=== PATIENT | female | born 1970 | race Caucasian/White ===

== ENCOUNTER 2016-07-20 09:11 | Inpatient (IN) | payer MEDICAID, OTHER ==
[2016-07-20] VITALS (13 sets, daily range): BP systolic 114–149; BP diastolic 65–86; PULSE 99–165; RESP 16–23; TEMP 97.7–100; O2SAT 96–100
[~2016-07-20] VITALS: Ht 165.1 cm; Wt 67.1 kg
[~2016-07-20 09:11] MED LIST: DARV PO; DOXY100T PO; SULF-154 PO; SUMA100T2 PO; TOPA15CA PO; TRAM50 PO
[2016-07-20] MEDS ORDERED: ADENOSINE IV SOLN 3 MG/ML 2 ML VIAL ONE (09:24)
[2016-07-20] MEDS ORDERED: SODIUM CHLOR 0.9% 1000 ML INJ 1,000 ML IV SCH (09:34)
[2016-07-20] MEDS ORDERED: PANTOPRAZOLE INJ 80 MG in SODIUM CHLORIDE 0.9% INJ 35 ML IV ONE (09:45)
[2016-07-20] MEDS ORDERED: SODIUM CHLORIDE 0.9% FLUSH 10 ML FLUSH IVF PRN (09:45)
[2016-07-20 10:01] LABS: AUTOMATED NEUTROPHIL # 8.2 TH/MM3 (1.8-7.7); BASOPHIL # 0.1 TH/MM3 (0-0.2); BASOPHIL % 0.5 % (0.0-2.0); EOSINOPHIL # 0.1 TH/MM3 (0-0.4); EOSINOPHIL % 0.4 % (0.0-4.0); LYMPH % 21.9 % (9.0-44.0); LYMPHOCYTE # 2.6 TH/MM3 (1.0-4.8); MEAN CELL VOLUME 76.2 FL (80.0-100.0); MEAN CORPUSCULAR HGB CONC 31.5 % (32.0-36.0); MONO % 7.2 % (0.0-8.0); PLATELET COUNT 321 TH/MM3 (150-450); RED BLOOD COUNT 2.24 MIL/MM3 (4.00-5.30); WHITE BLOOD COUNT 11.7 TH/MM3 (4.0-11.0)
[2016-07-20 10:05] LABS: HEMO FLAGS AUTO DIFF
[2016-07-20 10:10] LABS: HEMATOCRIT 17.1 % (35.0-46.0)
[2016-07-20] MEDS ORDERED: SODIUM CHLOR 0.9% 250 ML INJ 250 ML IV ONE (10:15)
[2016-07-20 10:17] LABS: APTT (PATIENT) 21.8 SEC (24.3-30.1); PROTHROMBIN TIME - PATIENT 11.5 SEC (9.8-11.6)
[2016-07-20 10:20] LABS: ANION GAP 12 MEQ/L (5-15); AST (GOT) 8 U/L (15-37); BICARBONATE 18.6 MEQ/L (21.0-32.0); BLOOD UREA NITROGEN 16 MG/DL (7-18); CHLORIDE 107 MEQ/L (98-107); GLOMERULAR FILTRATION RATE 74 ML/MIN (>89); SODIUM (NA) 138 MEQ/L (136-145)
[2016-07-20 10:23] LABS: ALKALINE PHOSPHATASE 38 U/L (45-117); ALT (GPT) 12 U/L (10-53); TOTAL BILIRUBIN ADULT 0.2 MG/DL (0.2-1.0)
[2016-07-20] MEDS: PANTOPRAZOLE INJ 80 MG in SODIUM CHLORIDE 0.9% INJ 100 ML IV SCH ×2 (10:23→19:00)
[2016-07-20 10:51] LABS: OVALOCYTES 1+ (NORMAL); POLYCHROMASIA 2.1 % (0.0-1.9); SCAN/DIFF AUTO DIFF CONFIRMED
[2016-07-20] MEDS ORDERED: ADENOSINE IV SOLN 3 MG/ML 2 ML VIAL IV PUSH ONE (11:00)
[2016-07-20] MEDS ORDERED: RESP: ALBUTEROL 2.5 MG/3 ML NEB (PRN) INH (11:30)
[2016-07-20] MEDS ORDERED: MISCELLANEOUS NURSING INFORMATION XX SCH (11:30)
[2016-07-20] MEDS ORDERED: ACETAMINOPHEN 325 MG TAB PO PRN (11:30)
[2016-07-20] MEDS ORDERED: CHLORHEXIDINE GLUCONATE 2 % 1 PACK (2 CLOTHS) TOP PRN (11:30)
[2016-07-20] MEDS ORDERED: SODIUM CHLORIDE 0.9% FLUSH 10 ML FLUSH IV FLUSH PRN (11:30)
[2016-07-20] MEDS ORDERED: diphenhydrAMINE HCL 50 MG/ML VIAL IV PUSH ONE (11:45)
[2016-07-20] MEDS ORDERED: PROCHLORPERAZINE INJ 10 MG/2 ML VIAL IM ONE (11:45)
--- NOTE | 2016-07-20 11:50 | HHI.HP ---
[facility] Service Critical Care Medicine Primary Care Physician No Primary Care Physician Admission Diagnosis gi bleed Diagnosis: (1) Microcytic hypochromic anemia Diagnosis: Principal (2) Syncope and collapse Diagnosis: Principal (3) Leukocytosis Diagnosis: Principal (4) Hypokalemia Diagnosis: Principal (5) Migraine headache Diagnosis: Principal (6) Sinus tachycardia Diagnosis: Principal Chief Complaint: Syncope Travel History International Travel<30 Days: No Contact w/Intl Traveler <30 Da: No Traveled to Known Affected Are: No History of Present Illness 46-year-old female. Admission 07/20/2069. Past medical his migraine headache - she takes 6-8 Excedrin migraines daily presented to [facility] with a 4 history of syncope at home. She noted that she her stools have been dark in nature. No murray blood noted. Prior history of "ulcer" 20 years ago diagnosed by barium examination. She is noted be tachycardic with rate 170s need EP was given 6 adenosine without result. Received 2 L normal saline. Hemoglobin 5.4. Type and cross for 2 units to be transfused PRBCs. Protonix drip 80 mg IV times once followed by 8 mg an hour. Ulcerative potassium 3.0. Replace. Also complaining of migraine headache without aura. She states that codeine and Lortab make her itch. Compazine and Benadryl ordered 1. Review of Systems Constitutional: DENIES: Fatigue, Fever, Weight gain Endocrine: DENIES: Abnorml menstrual pattern Eyes: DENIES: Blurred vision, Double Vision Ears, nose, mouth, throat: DENIES: Tinnitus, Ear Pain Respiratory: DENIES: Apneas, Shortness of breath Cardiovascular: DENIES: Chest pain Gastrointestinal: DENIES: Abdominal pain Genitourinary: DENIES: Abnormal vaginal bleeding, Nocturia Musculoskeletal: DENIES: Joint pain Integumentary: DENIES: Pruritus, Rash Hematologic/lymphatic: DENIES: Bruising Immunologic/allergic: DENIES: Eczema, Urticaria Neurologic: COMPLAINS OF: Headache, DENIES: Localized weakness, Paresthesias, Seizures Psychiatric: DENIES: Anxiety, Confusion, Depression Past Family Social History Allergies: Coded Allergies: Codeine (Verified Allergy, Mild, ITCHING, 09/05/07) Keflex (Verified Allergy, Mild, 09/05/07) Lortab (Verified Allergy, Mild, 09/05/07) Past Medical History Migraine headache Past Surgical History Appendectomy Tubal ligation Breast augmentation Reported Medications Topamax Imitrex Ultram Active Ordered Medications Reviewed in EMR Family History Mother and father noncontributory/no underlying medical problems according to patient. Both are alive Social History Denies tobacco, alcohol or IV drug use Physical Exam Vital Signs Vital Signs Date Time Temp Pulse Resp B/P Pulse Ox O2 Delivery O2 Flow Rate FiO2 07/20/16 11:15 115 18 120/65 99 Nasal Cannula 2 07/20/16 10:15 112 20 122/67 100 Nasal Cannula 2 07/20/16 09:37 100 Nasal Cannula 2 07/20/16 09:25 165 19 98 07/20/16 09:20 170 07/20/16 09:16 97.7 165 22 149/86 96 Physical Exam GENERAL: 46-year-old female, resting in bed in no acute distress SKIN: Warm and dry. Pale. HEAD: Atraumatic. Normocephalic. EYES: Pupils equal and round. Around 2 mm bilaterally and reactive No scleral icterus. No injection or drainage. ENT: No nasal bleeding or discharge. Mucous membranes pink and moderately moist NECK: Trachea midline. No JVD. CARDIOVASCULAR: Tachycardia, RR. S1, S2. No S4. Without murmur RESPIRATORY: Clear to auscultation. Breath sounds equal bilaterally. GASTROINTESTINAL: Abdomen soft, non-tender, nondistended. Active bowel sounds MUSCULOSKELETAL: Extremities without clubbing, cyanosis, or edema. NEUROLOGICAL: Awake and alert. No obvious cranial nerve deficits. Motor grossly within normal limits. Five out of 5 muscle strength in the arms and legs. Normal speech. PSYCHIATRIC: Appropriate mood and affect; insight and judgment normal. Laboratory Laboratory Tests Test 07/20/16 07/20/16 09:40 09:41 White Blood Count 11.7 Red Blood Count 2.24 Hemoglobin 5.4 Hematocrit 17.1 Mean Corpuscular Volume 76.2 Mean Corpuscular Hemoglobin 24.0 Mean Corpuscular Hemoglobin 31.5 Concent Red Cell Distribution Width 17.0 Platelet Count 321 Mean Platelet Volume 8.1 Neutrophils (%) (Auto) 70.0 Lymphocytes (%) (Auto) 21.9 Monocytes (%) (Auto) 7.2 Eosinophils (%) (Auto) 0.4 Basophils (%) (Auto) 0.5 Neutrophils # (Auto) 8.2 Lymphocytes # (Auto) 2.6 Monocytes # (Auto) 0.8 Eosinophils # (Auto) 0.1 Basophils # (Auto) 0.1 CBC Comment AUTO DIFF Differential Comment AUTO DIFF CONFIRMED Polychromasia 2.1 Ovalocytes 1+ Sodium Level 138 Potassium Level 3.0 Chloride Level 107 Carbon Dioxide Level 18.6 Anion Gap 12 Blood Urea Nitrogen 16 Creatinine 0.84 Estimat Glomerular Filtration 74 Rate Random Glucose 138 Calcium Level 8.5 Total Bilirubin 0.2 Aspartate Amino Transf 8 (AST/SGOT) Alanine Aminotransferase 12 (ALT/SGPT) Alkaline Phosphatase 38 Total Protein 6.4 Albumin 3.4 Blood Type O POSITIVE Antibody Screen NEGATIVE Crossmatch Leukocyte-Reduced Red Blood Cells Blood Bank Comment Prothrombin Time 11.5 Prothromb Time International 1.0 Ratio Activated Partial 21.8 Thromboplast Time Result Diagram: 07/20/1640 07/20/16939 Assessment and Plan Assessment and Plan Neuro/Psych: Migraine headache Received 10 mg Compazine IV 1/25 mg Benadryl IV 1 Acetaminophen for fever CV: Sinus tachycardia Status post adenosine 6 mg IV 1 ED. Heart initially 170 resolved with IV fluid bolus 1.25 L Check TSH Currently on normal saline at 84 cc an hour Resp: Nasal cannula to maintain saturations greater than or equal to 92% Incentive spirometry while awake GI: History of upper GI ulcer? Protonix 80 mg IV 1 followed by 8 mg per hour drip Serial hemoglobin is every 6 hours Cc heme for blood transfusion Gastroenterology/Dr. Chavira has been consulted : Delarosa not indicated Endo: Sliding-scale insulin if indicated to maintain euglycemia Check TSH with sinus tachycardia Renal: Creatinine currently within normal limits Accurate I's and O's Monitor urine output Heme: Microcytic hypochromic anemia Likely from slow upper GI blood. Hemoccult is pending Hemoglobin 5.4. Transfuse 2 units. Hemoglobin every 6 hours Coags within normal limits ID: Monitor for infection MSK: PT evaluate and treat FEN: Hypokalemia Received 60 mEq KCl IV 1/6 hours through peripheral IV Check magnesium. Recheck in a.m. Access: - Utilize peripheral IV. Central line if indicated Prophylaxis -GI - Protonix drip - DVT - SCD/pharmacological prophylaxis contraindicated with likely upper GI bleed Critical Care: The total critical care time was 55 minutes. Time to perform other separately billable procedures was not included in the critical care time. Code Status Full code Discussed Condition With Dr. Hayes/ED physician. Patient. Care plan discussed and all questions answered. Problem Qualifiers (1) Leukocytosis: Qualified Code: D72.829 - Leukocytosis, unspecified type (2) Migraine headache: Qualified Code: G43.909 - Migraine without status migrainosus, not intractable , unspecified migraine type Shant Rodriguez MD Jul 20, 2016 11:50
[2016-07-20] MEDS ORDERED: ONDANSETRON HCL 4 MG/2 ML VIAL IV PUSH ONE (12:00)
--- NOTE | 2016-07-20 12:06 | PD ---
HPI Chief Complaint: Cardiac Complaint Time Seen by Provider: 09:17 Travel History International Travel<30 days: No Contact w/Intl Traveler<30days: No Traveled to known affect area: No History of Present Illness HPI This is a 46-year-old female who presents to the emergency department with lightheadedness and dizziness, constant, severe, associated with palpitations that have been going on for 4 days. The patient reports that 4 days ago she was coming home from a restaurant and had an episode where she passed out. At that time EMS came to her house and noted that she had a high pulse rate but she said she didn't want to go to the hospital and she seemed to be getting better. Subsequently every time she tries to walk to the bathroom she feels very very sick, lightheaded and feels like she is going to pass out. She does acknowledge that she's had some black tarry stools. She takes a lot of aspirin. She's had an ulcer diagnosed years and years ago. 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 PFSH Past Medical History Diminished Hearing: No Migraines: Yes Tetanus Vaccination: < 5 Years Influenza Vaccination: Yes ?: Not Tubal Ligation: Yes Past Surgical History Surgical History: No Previous Surgery Appendectomy: Yes Other Surgery: Yes (breast augumentaion) Social History Alcohol Use: No Tobacco Use: No Substance Use: No Allergies-Medications (Allergen,Severity, Reaction): Coded Allergies: Codeine (Verified Allergy, Mild, ITCHING, 09/05/07) Keflex (Verified Allergy, Mild, 09/05/07) Lortab (Verified Allergy, Mild, 09/05/07) Reported Meds & Prescriptions Reported Meds & Active Scripts Active Darvocet-N 100 (Propoxyphene Napsylate/Acetam) Tab 1 Tab PO Q4HPRN NEEDED FOR PAIN Vibramycin (Doxycycline Hyclate) 100 Mg Cap 100 Mg PO BID Septra Ds (Trimethoprim/Sulfamethoxazole) Tab 1 Tab PO BID Reported Ultram (Tramadol HCl) 50 Mg Tab 1 Tab PO DIRECTED FOR PAIN Imitrex (Sumatriptan Succinate) 100 Mg Tab 100 Mg PO DAILY Topamax (Topiramate) 15 Mg Cap 0 Mg PO UNKNOWN DOSE Review of Systems Except as stated in HPI: all other systems reviewed are Neg Physical Exam Narrative GENERAL: Ill-appearing SKIN: Pale HEAD: Atraumatic. Normocephalic. EYES: Pupils equal and round. No injection or drainage. Pale sclera. ENT: Moist mucous membranes NECK: Trachea midline. CARDIOVASCULAR: Tachycardic. RESPIRATORY: Clear to auscultation. Breath sounds equal bilaterally. GASTROINTESTINAL: Abdomen soft, non-tender, nondistended. Melena on digital rectal exam. MUSCULOSKELETAL: No obvious deformities. NEUROLOGICAL: Awake and alert. No obvious cranial nerve deficits. Moving all extremities. PSYCHIATRIC: Appropriate mood and affect; insight and judgment normal. Data Data Last Documented VS Vital Signs Date Time Temp Pulse Resp B/P Pulse Ox O2 Delivery O2 Flow Rate FiO2 07/20/16 10:15 112 20 122/67 100 Nasal Cannula 2 07/20/16 09:16 97.7 Orders Adenosine Inj (Adenocard Inj) (07/20/16 09:24) Complete Blood Count With Diff (07/20/16 09:34) Comprehensive Metabolic Panel (07/20/16 09:34) Prothrombin Time / Inr (Pt) (07/20/16 09:34) Act Partial Throm Time (Ptt) (07/20/16 09:34) Type And Screen (07/20/16 09:34) Red Blood Cells (Rbc) (07/20/16 09:34) Ecg Monitoring (07/20/16 09:34) Iv Access Insert/Monitor (07/20/16 09:34) Oximetry (07/20/16 09:34) Sodium Chlor 0.9% 1000 Ml Inj (Ns 1000 M (07/20/16 09:34) Sodium Chloride 0.9% Flush (Ns Flush) (07/20/16 09:45) Pantoprazole Inj (Protonix Inj) (07/20/16 09:45) Pantoprazole Inj (Protonix Inj) (07/20/16 09:45) Blood Product Administration .UPON TRANSFUSION (07/20/16 10:12) Sodium Chlor 0.9% 250 Ml Inj (Ns 250 Ml (07/20/16 10:15) Adenosine Inj (Adenocard Inj) (07/20/16 11:00) Admit Order (Ed Use Only) (07/20/16 10:54) Labs Laboratory Tests Test 07/20/16 07/20/16 09:40 09:41 White Blood Count 11.7 TH/MM3 Red Blood Count 2.24 MIL/MM3 Hemoglobin 5.4 GM/DL Hematocrit 17.1 % Mean Corpuscular Volume 76.2 FL Mean Corpuscular Hemoglobin 24.0 PG Mean Corpuscular Hemoglobin 31.5 % Concent Red Cell Distribution Width 17.0 % Platelet Count 321 TH/MM3 Mean Platelet Volume 8.1 FL Neutrophils (%) (Auto) 70.0 % Lymphocytes (%) (Auto) 21.9 % Monocytes (%) (Auto) 7.2 % Eosinophils (%) (Auto) 0.4 % Basophils (%) (Auto) 0.5 % Neutrophils # (Auto) 8.2 TH/MM3 Lymphocytes # (Auto) 2.6 TH/MM3 Monocytes # (Auto) 0.8 TH/MM3 Eosinophils # (Auto) 0.1 TH/MM3 Basophils # (Auto) 0.1 TH/MM3 CBC Comment AUTO DIFF Differential Comment AUTO DIFF CONFIRMED Polychromasia 2.1 % Ovalocytes 1+ Sodium Level 138 MEQ/L Potassium Level 3.0 MEQ/L Chloride Level 107 MEQ/L Carbon Dioxide Level 18.6 MEQ/L Anion Gap 12 MEQ/L Blood Urea Nitrogen 16 MG/DL Creatinine 0.84 MG/DL Estimat Glomerular Filtration 74 ML/MIN Rate Random Glucose 138 MG/DL Calcium Level 8.5 MG/DL Total Bilirubin 0.2 MG/DL Aspartate Amino Transf 8 U/L (AST/SGOT) Alanine Aminotransferase 12 U/L (ALT/SGPT) Alkaline Phosphatase 38 U/L Total Protein 6.4 GM/DL Albumin 3.4 GM/DL Blood Type O POSITIVE Antibody Screen NEGATIVE Crossmatch Leukocyte-Reduced Red Blood Cells Blood Bank Comment Prothrombin Time 11.5 SEC Prothromb Time International 1.0 RATIO Ratio Activated Partial 21.8 SEC Thromboplast Time MDM Medical Decision Making Medical Screen Exam Complete: Yes Emergency Medical Condition: Yes Interpretation(s) EKG: Narrow complex tachycardia with a rate of 163 with some inferior and lateral ST depressions Hemoglobin is 5.4 Hematocrit is 17 Electrolytes are reassuring Coags are normal Differential Diagnosis SVT, upper GI bleed, lower GI bleed, menorrhagia, electrolyte abnormality Narrative Course This is a 46-year-old female who presents to the emergency department with symptoms consistent with a GI bleed. On arrival she was very tachycardic with a heart rate in the 160s to 170s. Her blood pressure was normal. She was given 6 mg of adenosine and a liter of IV fluid. The adenosine did not change her rate but the fluid seemed to slow her rate down and make it more evident that she was in a sinus tachycardia. Further adenosine was deferred and the patient was given IV hydration. She was found to have a hemoglobin of 5.4. She was Hemoccult positive. She was transfused 2 units of packed red blood cells. She was started on a pantoprazole infusion. I spoke to Dr. Marlow and who is aware of the patient and the patient will be admitted to the intensive care unit for close monitoring. Critical Care Narrative Aggregate critical care time was 50 minutes. Time to perform other separately billable procedures was not included in the critical care time. My time did not include minutes spent treating any other patients simultaneously or on activities that did not directly contribute to the patient's treatment. The services I provided to this patient were to treat and/or prevent clinically significant deterioration that could result in: disability, I provided critical care services requiring my management, as noted below: Chart data review, documentation time, medication orders and management, vital sign assessments/reviewing monitor data, ordering and reviewing lab tests, ordering and interpreting/reviewing x-rays and diagnostic studies, care of the patient and discussion of the patient with the admitting physicians. Physician Communication Physician Communication Discussed with Dr. Marlow and Dr. Rodriguez Diagnosis Primary Impression: GI bleed Qualified Code: K92.2 - Gastrointestinal hemorrhage, unspecified gastrointestinal hemorrhage type Roslyn aHyes MD Jul 20, 2016 12:06
[2016-07-20] MEDS: SUMAtriptan INJ 6 MG/0.5 ML VIAL SQ PRN (12:19)
[2016-07-20] MEDS: SODIUM CHLOR 0.9% 1000 ML INJ 1,000 ML IV SCH (12:25)
[2016-07-20] MEDS: POTASSIUM CHLOR 10 MEQ PREMIX 100 ML IV SCH ×3 (12:51→17:20)
--- NOTE | 2016-07-20 13:13 | PD.CONS ---
HPI History of Present Illness This is a 46 year old female with a history of migraine headaches for many years. At one point she was on Imitrex but states that she's been off of this and has not seen a physician in probably 10-15 years. She reports that she gets frequent headaches and takes large amount of NSAIDs. She reports that she takes at least 4 Excedrin daily and at least 6 Excedrin pills every other day along with BC Powder. She reports that Monday morning, she had a black tarry stool. She went to [place] that night and when she was sleeping she had a syncopal episode. 911 was called and evaluated her in the parking lot, however she refused to be brought to the emergency room for evaluation. She reports that yesterday she had a severe headache and took a BC powder with 8 Excedrin. Last night, she started having some epigastric pain described as pressure. She vomited a small amount of black emesis. This am, she has had several episodes of black tarry stool. She felt extremely weak and as though her heart was racing and therefore came to the ER for further evaluation. She was found to have severe anemia with an H&H of 5.4/17.1. She is tachycardic with a HR in the 130's, although her blood pressure has been stable. She reports that she was told that she had a bleeding ulcer, based off of an imaging study about 20 years ago. She has never had an EGD/Colonoscopy. She is currently waiting for an ICU bed in the ER. She is receiving IVF and blood has been ordered. ( Parris yWatt) PFSH Past Medical History Questionable hx of PUD Migraine headaches Past Surgical History Tubal ligation Oral surgery Appendectomy Breast augmentation (Parris Wyatt) Coded Allergies: Codeine (Verified Allergy, Mild, ITCHING, 07/20/16) Keflex (Verified Allergy, Mild, 07/20/16) Lortab (Verified Allergy, Mild, 07/20/16) Medications Allergies Coded Allergies Type Severity Reaction Last Updated Verified Codeine Allergy Mild ITCHING 09/05/07 Yes Keflex Allergy Mild 09/05/07 Yes Lortab Allergy Mild 09/05/07 Yes Active Scripts Medications Dose Route/Sig Days Date Category Dose Instructions Darvocet-N 100 (Propoxyphene Napsylate/Acetam) Tab 1 Tab PO Q4HPRN 09/05/07 Rx NEEDED FOR PAIN Vibramycin (Doxycycline Hyclate) 100 Mg Cap 100 Mg PO BID 09/05/07 Rx Septra Ds (Trimethoprim/Sulfamethoxazole) Tab 1 Tab PO BID 09/05/07 Rx Ultram (Tramadol HCl) 50 Mg Tab 1 Tab PO DIRECTED 09/05/07 Reported FOR PAIN Imitrex (Sumatriptan Succinate) 100 Mg Tab 100 Mg PO DAILY 09/05/07 Reported Topamax (Topiramate) 15 Mg Cap 0 Mg PO 09/05/07 Reported UNKNOWN DOSE Family History Denies any family hx of esophageal, gastric, colorectal cancer. Social History No tobacco, ETOH, Illicit drug use. (Parris Wyatt) Review of Systems Constitutional: COMPLAINS OF: Diaphoretic episodes, Fatigue, DENIES: Weight loss, Change in appetite Respiratory: DENIES: Cough Cardiovascular: COMPLAINS OF: Syncope Gastrointestinal: COMPLAINS OF: Abdominal pain, Black stools, Nausea, Vomiting , Hematemesis, DENIES: Bloody stools, Constipation, Diarrhea Musculoskeletal: DENIES: Back pain Integumentary: DENIES: Abnormal pigmentation Hematologic/lymphatic: DENIES: Bruising Neurologic: COMPLAINS OF: Headache Psychiatric: DENIES: Confusion (Parris Wyatt) GI Exam Vitals I&O Vital Signs Date Time Temp Pulse Resp B/P Pulse Ox O2 Delivery O2 Flow Rate FiO2 07/20/16 11:53 100 Nasal Cannula 2.00 07/20/16 11:15 115 18 120/65 99 Nasal Cannula 2 07/20/16 10:15 112 20 122/67 100 Nasal Cannula 2 07/20/16 09:37 100 Nasal Cannula 2 07/20/16 09:25 165 19 98 07/20/16 09:20 170 07/20/16 09:16 97.7 165 22 149/86 96 Laboratory Test 07/20/16 07/20/16 07/20/16 07/20/16 09:40 09:41 11:35 12:06 White Blood Count 11.7 TH/MM3 Red Blood Count 2.24 MIL/MM3 Hemoglobin 5.4 GM/DL Hematocrit 17.1 % Mean Corpuscular Volume 76.2 FL Mean Corpuscular Hemoglobin 24.0 PG Mean Corpuscular Hemoglobin 31.5 % Concent Red Cell Distribution Width 17.0 % Platelet Count 321 TH/MM3 Mean Platelet Volume 8.1 FL Neutrophils (%) (Auto) 70.0 % Lymphocytes (%) (Auto) 21.9 % Monocytes (%) (Auto) 7.2 % Eosinophils (%) (Auto) 0.4 % Basophils (%) (Auto) 0.5 % Neutrophils # (Auto) 8.2 TH/MM3 Lymphocytes # (Auto) 2.6 TH/MM3 Monocytes # (Auto) 0.8 TH/MM3 Eosinophils # (Auto) 0.1 TH/MM3 Basophils # (Auto) 0.1 TH/MM3 CBC Comment AUTO DIFF Differential Comment AUTO DIFF CONFIRMED Polychromasia 2.1 % Ovalocytes 1+ Sodium Level 138 MEQ/L Potassium Level 3.0 MEQ/L Chloride Level 107 MEQ/L Carbon Dioxide Level 18.6 MEQ/L Anion Gap 12 MEQ/L Blood Urea Nitrogen 16 MG/DL Creatinine 0.84 MG/DL Estimat Glomerular Filtration 74 ML/MIN Rate Random Glucose 138 MG/DL Calcium Level 8.5 MG/DL Total Bilirubin 0.2 MG/DL Aspartate Amino Transf 8 U/L (AST/SGOT) Alanine Aminotransferase 12 U/L (ALT/SGPT) Alkaline Phosphatase 38 U/L Total Protein 6.4 GM/DL Albumin 3.4 GM/DL Blood Type O POSITIVE O POSITIVE Antibody Screen NEGATIVE Crossmatch Leukocyte-Reduced Red Blood Cells Blood Bank Comment Prothrombin Time 11.5 SEC Prothromb Time International 1.0 RATIO Ratio Activated Partial 21.8 SEC Thromboplast Time Lactic Acid Level 1.1 mmol/L Physical Examination HEENT: Normocephalic; atraumatic; no jaundice. CHEST: CTA CARDIAC: RRR ABDOMEN: Soft, nondistended, epigastric tenderness; no hepatosplenomegaly; bowel sounds are present in all four quadrants. EXTREMITIES: No clubbing, cyanosis, or edema. 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 (Parris Wyatt) Assessment and Plan Plan ASSESSMENT: - Upper GIB with black emesis and melena. Pt with hx of migraines and takes large amounts of NSAIDs- at least 4 excedrin daily along with BC powder and Motrin, usually at least 6 excedrin every other day. Had 8 excedrin with BC powder yesterday. Had syncopal episode on Monday, 911 came and evaluated her, but she refused to go to the ER. She has been having epigastric discomfort, hematemesis, melena. H/H 5.4/17.1. She is tachycardic in 130's, B/P stable. Blood has been ordered, but not ready yet. Protonix Gtt. D/W patient EGD today. She does report that she was told that she had bleeding ulcer based on imaging, ? upper gi series 20 years ago but has not been. - Severe anemia. H/H 5.4/17.1. Blood ordered/pending. - Recent syncopal episode, likely related to above. She reports that she had syncopal episode Monday night, was evaluated by 911, but refused to go to the hospital. - Hypokalemia. K+ 3.0, replacement per primary - Migraines, with significant NSAID use. PLAN: - Plan for EGD today once blood given - Obtain consents - NPO - Protonix Gtt - Agree with transfusions - IVF - Monitor HH - Transfuse as needed - Avoid NSAIDs - Supportive care - D/W patient the need for outpatient FU with regards to her migraines to get better control- as she cannot be taking NSAIDs - Further recommendations to follow based on results of above - Pt seen and examined by Dr. Marlow and myself and this note is written on his behalf (Parris Wyatt) Physician Comments Patient seen and examined Agree with above Continue with current supportive care Monitor labs EGD today (Roney Marlow MD) Parris Wyatt Jul 20, 2016 13:13 Roney Marlow MD Jul 20, 2016 21:38
[2016-07-20 13:28] LABS: MAGNESIUM 1.9 MG/DL (1.5-2.5)
[2016-07-20] MEDS ORDERED: ACETAMINOPHEN 1000 MG/100 ML VIAL IV ONE (13:30)
[2016-07-20] MEDS ORDERED: KETAMINE HCL 500 MG/5 ML VIAL ONE (15:33)
[2016-07-20] MEDS ORDERED: DO NOT ADM ANY ANTICOAGULANT DRUGS PRN (16:03)
[2016-07-20] MEDS ORDERED: PROPOFOL 200 MG/20 ML AMP IV ONE (16:28)
[2016-07-20] MEDS ORDERED: POTASSIUM CHLOR 20 MEQ PREMIX 100 ML IV PRN ×2 (18:45)
[2016-07-20] MEDS ORDERED: SODIUM PHOSPHATE INJ 30 MMOL in SODIUM CHLOR 0.9% 250 ML INJ 240 ML IV PRN (18:45)
[2016-07-20] MEDS ORDERED: MAGNESIUM SULFATE INJ 4 GM in SODIUM CHLORIDE 0.9% INJ 92 ML IV PRN (18:45)
[2016-07-20] MEDS ORDERED: MAGNESIUM OXIDE 400 MG TAB PO PRN (18:45)
[2016-07-20] MEDS ORDERED: POTASSIUM PHOSPHATE MONOBASIC 500 MG TAB PO PRN (18:45)
[2016-07-20] MEDS ORDERED: POTASSIUM PHOSPHATE MONOBASIC 500 MG TAB PO/TUBE PRN (18:45)
[2016-07-20] MEDS ORDERED: MAGNESIUM SULFATE INJ 2 GM in SODIUM CHLORIDE 0.9% INJ 96 ML IV PRN (18:45)
[2016-07-20] MEDS ORDERED: POTASSIUM CHLORIDE 25 MEQ EFFERVESCENT TAB PO PRN (18:45)
[2016-07-20] MEDS ORDERED: POTASSIUM CHLOR 40 MEQ PREMIX 100 ML IV PRN ×2 (18:45)
--- NOTE | 2016-07-20 20:01 | EKG ---
Date Performed: 07/20/2016 Time Performed: 09:21:40 PTAGE: 46 years EKG: SUPRAVENTRICULAR TACHYCARDIA NONSPECIFIC ST & T-WAVE ABNORMALITY ABNORMAL RHYTHM ECG NO PREVIOUS TRACING DOCTOR: Rere Maldonado Interpretating Date/Time 07/25/2016 08:50:57
--- NOTE | 2016-07-20 21:40 | PD.PROCEDR ---
GI Procedure REFERRING PHYSICIAN Dr. Rodriguez PROCEDURE PERFORMED EGD INDICATION FOR PROCEDURE GI bleed profound anemia PROCEDURE: The procedure, risks and benefits were discussed with Ms. García and informed consent was obtained. Anesthesia sedated her with Diprivan. She was placed in the left lateral decubitus position. EGD: The Pentax videoscope was introduced through the oropharynx and advanced to the second portion of the duodenum under direct visualization. Retroflexion was performed in the stomach. FINDINGS: The esophagus this was normal The stomach this was normal The duodenum this was normal ESTIMATED BLOOD LOSS: None SPECIMENS REMOVED: None COMPLICATIONS: None IMPRESSION: Normal EGD unclear source for bleeding PLAN: Supportive care Colonoscopy tomorrow If colonoscopy is negative we will need to consider a capsule endoscopy on an outpatient basis Roney Marlow MD Jul 20, 2016 21:40
[2016-07-20] MEDS ORDERED: MAGNESIUM CITRATE SOLN 300 ML BTL PO ONE (21:45)
[2016-07-20] MEDS: SODIUM CHLORIDE 0.9% FLUSH 10 ML FLUSH IV FLUSH SCH (22:43)
[2016-07-21] VITALS (13 sets, daily range): BP systolic 103–130; BP diastolic 59–85; PULSE 86–108; RESP 16–24; TEMP 97.5–99.8; O2SAT 94–100
[2016-07-21 00:28] LABS: HEMATOCRIT 27.4 % (35.0-46.0); REVIEW FLAG FINAL
[2016-07-21] MEDS: SODIUM CHLOR 0.9% 1000 ML INJ 1,000 ML IV SCH ×2 (03:30→11:07)
[2016-07-21] MEDS: CHLORHEXIDINE GLUCONATE 2 % 1 PACK (2 CLOTHS) TOP SCH (03:31)
[2016-07-21 04:48] LABS: ALT (GPT) 10 U/L (10-53); ANION GAP 9 MEQ/L (5-15); AST (GOT) 11 U/L (15-37); BICARBONATE 22.5 MEQ/L (21.0-32.0); BLOOD UREA NITROGEN 6 MG/DL (7-18); CHLORIDE 116 MEQ/L (98-107); GLOMERULAR FILTRATION RATE 155 ML/MIN (>89); MAGNESIUM 2.6 MG/DL (1.5-2.5); POTASSIUM 3.6 MEQ/L (3.5-5.1); SODIUM (NA) 147 MEQ/L (136-145)
[2016-07-21 04:54] LABS: ALKALINE PHOSPHATASE 30 U/L (45-117); APTT (PATIENT) 23.5 SEC (24.3-30.1); INTERNATIONAL NORMALIZED RATIO 1.1 RATIO; PROTHROMBIN TIME - PATIENT 11.9 SEC (9.8-11.6); TOTAL BILIRUBIN ADULT 0.3 MG/DL (0.2-1.0)
[2016-07-21] MEDS: PANTOPRAZOLE INJ 80 MG in SODIUM CHLORIDE 0.9% INJ 100 ML IV SCH (05:32)
[2016-07-21] MEDS ORDERED: MAGNESIUM CITRATE SOLN 300 ML BTL PO ONE (06:00)
[2016-07-21 07:19] LABS: BASOPHIL % 0.5 % (0.0-2.0); EOSINOPHIL % 0.2 % (0.0-4.0); HEMATOCRIT 24.4 % (35.0-46.0); HEMO FLAGS DIFF FINAL; LYMPH % 21.1 % (9.0-44.0); LYMPHOCYTE # 1.5 TH/MM3 (1.0-4.8); MEAN CELL VOLUME 79.2 FL (80.0-100.0); MEAN CORPUSCULAR HEMOGLOBIN 27.2 PG (27.0-34.0); MEAN CORPUSCULAR HGB CONC 34.3 % (32.0-36.0); MONO % 8.7 % (0.0-8.0); NEUT % 69.5 % (16.0-70.0); PLATELET COUNT 189 TH/MM3 (150-450); RED BLOOD COUNT 3.08 MIL/MM3 (4.00-5.30); RED CELL DISTRIBUTION WIDTH 17.3 % (11.6-17.2); WHITE BLOOD COUNT 7.1 TH/MM3 (4.0-11.0)
[2016-07-21] MEDS: SUMAtriptan INJ 6 MG/0.5 ML VIAL SQ PRN ×2 (07:23→11:51)
[2016-07-21] MEDS: SODIUM CHLORIDE 0.9% FLUSH 10 ML FLUSH IV FLUSH SCH ×2 (09:00→21:33)
--- NOTE | 2016-07-21 11:52 | HHI.CCPN ---
Subjective Remarks/Hospital Course 46-year-old female. Admission 07/20/2069. Past medical his migraine headache - she takes 6-8 Excedrin migraines daily presented to [place] ED with a 4 history of syncope at home. She noted that she her stools have been dark in nature. No murray blood noted. Prior history of "ulcer" 20 years ago diagnosed by barium examination. She is noted be tachycardic with rate 170s need EP was given 6 adenosine without result. Received 2 L normal saline. Hemoglobin 5.4. Type and cross for 2 units to be transfused PRBCs. Protonix drip 80 mg IV times once followed by 8 mg an hour. Currently potassium 3.0. Replace. Also complaining of migraine headache without aura. She states that codeine and Lortab make her itch. Compazine and Benadryl ordered 1. Subjective 07/21: Afebrile. Complaining of headache currently. Received Imitrex. Received Compazine, Benadryl and Dilaudid 1 now. No vision changes. For sigmoidoscopy today. EGD negative yesterday. Hemoglobin currently 8.4 status post 3 units PRBCs. Objective Vital Signs Date Time Temp Pulse Resp B/P Pulse Ox O2 Delivery O2 Flow Rate FiO2 07/21/16 08:36 100 Nasal Cannula 2.00 07/21/16 06:00 91 07/21/16 04:00 98.6 19 111/72 Intake and Output 07/20/16 07/20/16 07/21/16 08:00 16:00 00:00 Intake Total 350 ml 2821 ml Output Total 700 ml Balance 350 ml 2121 ml Result Diagram: 07/21/16 0710 07/21/16 0400 Objective Remarks GENERAL: 46-year-old female, resting in bed in no acute distress SKIN: Warm and dry. Pale. HEAD: Atraumatic. Normocephalic. EYES: Pupils equal and round. Around 2 mm bilaterally and reactive No scleral icterus. No injection or drainage. ENT: No nasal bleeding or discharge. Mucous membranes pink and moderately moist NECK: Trachea midline. No JVD. CARDIOVASCULAR: Tachycardia, RR. S1, S2. No S4. Without murmur RESPIRATORY: Clear to auscultation. Breath sounds equal bilaterally. GASTROINTESTINAL: Abdomen soft, non-tender, nondistended. Active bowel sounds MUSCULOSKELETAL: Extremities without clubbing, cyanosis, or edema. NEUROLOGICAL: Awake and alert. No obvious cranial nerve deficits. Motor grossly within normal limits. Five out of 5 muscle strength in the arms and legs. Normal speech. PSYCHIATRIC: Appropriate mood and affect; insight and judgment normal. A/P Assessment and Plan Neuro/Psych: Migraine headache Received 10 mg Compazine IV 1/25 mg Benadryl IV 1 and Dilaudid 1 mg IV 1 now Acetaminophen for fever Imitrex 6 mg subcutaneous for migraine. Repeat when necessary If headaches persist will need imaging of brain CV: Sinus tachycardia - likely hypovolemic secondary to anemia Status post adenosine 6 mg IV 1 ED. Heart initially 170 resolved with IV fluid bolus 1.25 L Check TSH Currently on normal saline at 84 cc an hour Resp: Nasal cannula to maintain saturations greater than or equal to 92% Incentive spirometry while awake GI: History of upper GI ulcer? Protonix 80 mg IV 1 followed by 8 mg per hour drip switch to 40 mg IV twice a day with normal findings Serial hemoglobin is every 6 hours corrected appropriately. See heme for blood transfusion Gastroenterology/Dr. Chavira has been consulted EGD revealed normal esophagus, duodenum and stomach. For sigmoidoscopy today. : Delarosa not indicated Endo: Elevated TSH Sliding-scale insulin if indicated to maintain euglycemia Follow free T4/T3 in a.m. Renal: Creatinine currently within normal limits Accurate I's and O's Monitor urine output Heme: Microcytic hypochromic anemia Likely from slow upper GI blood. Hemoccult is pending Hemoglobin 5.4. Transfuse 3 units. Now 8.4 Coags within normal limits ID: Monitor for infection MSK: PT evaluate and treat FEN: Hypokalemia Testing at 3.6. Access: - Utilize peripheral IV. Central line if indicated Prophylaxis -GI - Protonix - DVT - SCD/pharmacological prophylaxis contraindicated with likely upper GI bleed Critical Care: The total care time was 35 minutes. Time to perform other separately billable procedures was not included in the critical care time. If sigmoid endoscopy negative. Likely need capsule. Okay to transfer to floor. Shant Rodriguez MD Jul 21, 2016 11:52
[2016-07-21] MEDS ORDERED: PROCHLORPERAZINE INJ 10 MG/2 ML VIAL IV PUSH ONE (13:00)
[2016-07-21] MEDS ORDERED: HYDROmorphone HCL PF 1 MG/ML VIAL IV PUSH ONE (13:00)
[2016-07-21] MEDS ORDERED: diphenhydrAMINE HCL 50 MG/ML VIAL IV PUSH ONE (13:00)
[2016-07-21] MEDS: 1/2 NS + KCL 20 MEQ INJ 1,000 ML IV SCH ×2 (14:11→21:33)
[2016-07-21] MEDS ORDERED: DO NOT ADM ANY ANTICOAGULANT DRUGS PRN (16:43)
--- NOTE | 2016-07-21 17:03 | PD.PROCEDR ---
GI Procedure REFERRING PHYSICIAN Dr. Rodriguez PROCEDURE PERFORMED Colonoscopy INDICATION FOR PROCEDURE Anemia GI bleed PROCEDURE: The procedure, risks and benefits were discussed with Ms. García and informed consent was obtained. Anesthesia sedated her with Diprivan. She was placed in the left lateral decubitus position. Colonoscopy: The Pentax videoscope was introduced through the rectum and advanced to cecum where the ileocecal valve and appendiceal orifice were identified. Retroflexion was performed in the rectum. Colonic prep was good FINDINGS: Colonic withdrawal time greater than 6 minutes as the scope was slowly withdrawn colonic mucosa was carefully inspected this was noted to be unremarkable and within normal limits the whole way through so as retroflexion in rectal examination no evidence of blood or bleeding was seen in the colon ESTIMATED BLOOD LOSS: None SPECIMENS REMOVED: None COMPLICATIONS: None IMPRESSION: Normal colonoscopy PLAN: We'll proceed with a small bowel study If all is stable tomorrow patient may be discharged from a GI standpoint to follow up as outpatient We'll plan for outpatient capsule endoscopy Continue with current supportive care Roney Marlow MD Jul 21, 2016 17:03
--- NOTE | 2016-07-21 17:30 | PD.TRANSFR ---
Transfer Summary Admission Date Jul 20, 2016 at 10:55 Transfer Date: Jul 21, 2016 Admitting Diagnosis gi bleed Diagnoses: (1) Microcytic hypochromic anemia Diagnosis: Principal (2) Syncope and collapse Diagnosis: Principal (3) Leukocytosis Diagnosis: Principal (4) Hypokalemia Diagnosis: Principal (5) Migraine headache Diagnosis: Principal (6) Sinus tachycardia Diagnosis: Principal Significant Findings EKG colonoscopy negative Transfer Summary/Subjective Remarks/Hospital Course 46-year-old female. Admission 07/20/2069. Past medical his migraine headache - she takes 6-8 Excedrin migraines daily presented to [place] ED with a 4 history of syncope at home. She noted that she her stools have been dark in nature. No murray blood noted. Prior history of "ulcer" 20 years ago diagnosed by barium examination. She is noted be tachycardic with rate 170s need EP was given 6 adenosine without result. Received 2 L normal saline. Hemoglobin 5.4. Type and cross for 2 units to be transfused PRBCs. Protonix drip 80 mg IV times once followed by 8 mg an hour. Currently potassium 3.0. Replace. Also complaining of migraine headache without aura. She states that codeine and Lortab make her itch. Compazine and Benadryl ordered 1. Subjective 07/21: Afebrile. Complaining of headache currently. Received Imitrex. Received Compazine, Benadryl and Dilaudid 1 now. No vision changes. For sigmoidoscopy today. EGD negative yesterday. Hemoglobin currently 8.4 status post 3 units PRBCs. Objective Vital Signs Date Time Temp Pulse Resp B/P Pulse Ox O2 Delivery O2 Flow Rate FiO2 07/21/16 16:00 98.5 108 17 103/59 94 07/21/16 08:36 Nasal Cannula 2.00 Intake and Output 07/20/16 07/20/16 07/21/16 08:00 16:00 00:00 Intake Total 350 ml 2821 ml Output Total 700 ml Balance 350 ml 2121 ml Result Diagram: 07/21/16 1618 07/21/16 0400 Objective Remarks GENERAL: 46-year-old female, resting in bed in no acute distress SKIN: Warm and dry. Pale. HEAD: Atraumatic. Normocephalic. EYES: Pupils equal and round. Around 2 mm bilaterally and reactive No scleral icterus. No injection or drainage. ENT: No nasal bleeding or discharge. Mucous membranes pink and moderately moist NECK: Trachea midline. No JVD. CARDIOVASCULAR: Tachycardia, RR. S1, S2. No S4. Without murmur RESPIRATORY: Clear to auscultation. Breath sounds equal bilaterally. GASTROINTESTINAL: Abdomen soft, non-tender, nondistended. Active bowel sounds MUSCULOSKELETAL: Extremities without clubbing, cyanosis, or edema. NEUROLOGICAL: Awake and alert. No obvious cranial nerve deficits. Motor grossly within normal limits. Five out of 5 muscle strength in the arms and legs. Normal speech. PSYCHIATRIC: Appropriate mood and affect; insight and judgment normal. A/P Assessment and Plan Neuro/Psych: Migraine headache Received 10 mg Compazine IV 1/25 mg Benadryl IV 1 and Dilaudid 1 mg IV 1 now Acetaminophen for fever Imitrex 6 mg subcutaneous for migraine. Repeat when necessary If headaches persist will need imaging of brain CV: Sinus tachycardia - likely hypovolemic secondary to anemia Status post adenosine 6 mg IV 1 ED. Heart initially 170 resolved with IV fluid bolus 1.25 L Check TSH Currently on normal saline at 84 cc an hour Resp: Nasal cannula to maintain saturations greater than or equal to 92% Incentive spirometry while awake GI: History of upper GI ulcer? Protonix 80 mg IV 1 followed by 8 mg per hour drip switch to 40 mg IV twice a day with normal findings Serial hemoglobin is every 6 hours corrected appropriately. See heme for blood transfusion Gastroenterology/Dr. Chavira has been consulted EGD revealed normal esophagus, duodenum and stomach. For sigmoidoscopy today. : Delarosa not indicated Endo: Elevated TSH Sliding-scale insulin if indicated to maintain euglycemia Follow free T4/T3 in a.m. Renal: Creatinine currently within normal limits Accurate I's and O's Monitor urine output Heme: Microcytic hypochromic anemia Likely from slow upper GI blood. Hemoccult is pending Hemoglobin 5.4. Transfuse 3 units. Now 8.4 Coags within normal limits ID: Monitor for infection MSK: PT evaluate and treat FEN: Hypokalemia Testing at 3.6. Access: - Utilize peripheral IV. Central line if indicated Prophylaxis -GI - Protonix - DVT - SCD/pharmacological prophylaxis contraindicated with likely upper GI bleed Critical Care: The total care time was 35 minutes. Time to perform other separately billable procedures was not included in the critical care time. If sigmoid endoscopy negative. Likely need capsule. Okay to transfer to floor. Shant Rodriguez MD Jul 21, 2016 17:30
[2016-07-21] MEDS ORDERED: SODIUM CHLORID 0.9% 500 ML INJ 500 ML IV ONE (17:45)
[2016-07-21] MEDS ORDERED: PROPOFOL 200 MG/20 ML AMP IV ONE (17:55)
--- NOTE | 2016-07-21 17:59 | EKG ---
Date Performed: 07/20/2016 Time Performed: 12:46:48 PTAGE: 46 years EKG: SINUS TACHYCARDIA Nonspecific ST-T changes ABNORMAL RHYTHM ECG Compared to prior study of 0 07/20/2016, the rate has slowed. PREVIOUS TRACING : 07/20/2016 09.21 DOCTOR: Navdeep Doyle Interpretating Date/Time 07/21/2016 17:58:07
[2016-07-21] MEDS: HYDROmorphone HCL PF 1 MG/ML VIAL IV PUSH PRN ×2 (18:03→22:04)
[2016-07-21] MEDS: ONDANSETRON HCL 4 MG/2 ML VIAL IV PRN (18:03)
[2016-07-21] MEDS: PANTOPRAZOLE SODIUM 40 MG VIAL IV PUSH SCH (21:33)
[2016-07-22] MEDS: HYDROmorphone HCL PF 1 MG/ML VIAL IV PUSH PRN ×3 (02:21→18:11)
[2016-07-22] MEDS: CHLORHEXIDINE GLUCONATE 2 % 1 PACK (2 CLOTHS) TOP SCH (04:00)
[2016-07-22 05:17] VITALS: BP 114/59; PULSE 99; RESP 16; TEMP 98.2; O2SAT 95
[2016-07-22 07:18] LABS: AUTOMATED NEUTROPHIL # 7.2 TH/MM3 (1.8-7.7); BASOPHIL % 0.2 % (0.0-2.0); EOSINOPHIL % 0.5 % (0.0-4.0); HEMATOCRIT 24.8 % (35.0-46.0); HEMO FLAGS DIFF FINAL; LYMPH % 9.4 % (9.0-44.0); LYMPHOCYTE # 0.8 TH/MM3 (1.0-4.8); MEAN CELL VOLUME 79.6 FL (80.0-100.0); MEAN CORPUSCULAR HEMOGLOBIN 27.1 PG (27.0-34.0); MEAN CORPUSCULAR HGB CONC 34.1 % (32.0-36.0); NEUT % 82.9 % (16.0-70.0); PLATELET COUNT 211 TH/MM3 (150-450); RED BLOOD COUNT 3.12 MIL/MM3 (4.00-5.30); RED CELL DISTRIBUTION WIDTH 18.1 % (11.6-17.2); WHITE BLOOD COUNT 8.7 TH/MM3 (4.0-11.0)
[2016-07-22 08:00] VITALS: BP 128/60; PULSE 92; RESP 16; TEMP 98.2; O2SAT 95
[2016-07-22 08:06] LABS: ANION GAP 6 MEQ/L (5-15); BICARBONATE 26.2 MEQ/L (21.0-32.0); BLOOD UREA NITROGEN 4 MG/DL (7-18); CHLORIDE 107 MEQ/L (98-107); FREE T3 2.96 PG/ML (2.18-3.98); FREE T4 1.46 NG/DL (0.76-1.46); GLOMERULAR FILTRATION RATE 148 ML/MIN (>89); MAGNESIUM 2.3 MG/DL (1.5-2.5); POTASSIUM 3.3 MEQ/L (3.5-5.1); SODIUM (NA) 139 MEQ/L (136-145)
[2016-07-22 08:23] LABS: CALCIUM-PROTEIN CORRECTED 8.4 MG/DL (8.5-10.1)
[2016-07-22] MEDS: PANTOPRAZOLE SODIUM 40 MG VIAL IV PUSH SCH (08:28)
[2016-07-22] MEDS: SODIUM CHLORIDE 0.9% FLUSH 10 ML FLUSH IV FLUSH SCH ×2 (08:28→21:02)
[2016-07-22] MEDS: 1/2 NS + KCL 20 MEQ INJ 1,000 ML IV SCH ×2 (08:31→21:02)
--- NOTE | 2016-07-22 09:36 | HHI.PR ---
Subjective Remarks Patient tells me that she continues to have a migraine headache, located mostly in the occipital region with radiation down her neck, not associated with any blurriness of her vision. She admits to mild nausea but no vomiting. She states that this migraine is different from her other migraines however she does admit having migraines for many years. She used to see Dr. Alberto and now has entered this migraine research study for which she takes injections monthly but cannot recall the name. Rates her migraine as 6 out of 10 She denies any bleeding per rectum and pt hasn't had a BM since last night. some epigastric tenderness w palpation. Patient mentions to me that the right calf is more enlarged on the left but per and patient this is chronic has been going on more than a year but wanted to mention it. No pain or redness noted on the right calf. Objective Vitals Vital Signs Date Time Temp Pulse Resp B/P Pulse Ox O2 Delivery O2 Flow Rate FiO2 07/22/16 05:17 98.2 99 16 114/59 95 07/21/16 23:18 99.8 105 16 108/70 94 07/21/16 22:28 96 room air 21 07/21/16 20:00 100 07/21/16 19:50 99.2 105 16 122/64 99 07/21/16 17:28 98.1 104 20 101/57 99 Nasal Cannula 2 07/21/16 17:15 104 20 101/57 99 Nasal Cannula 2 07/21/16 17:00 104 20 102/55 99 Nasal Cannula 2 07/21/16 16:55 98.1 107 20 100/53 100 Nasal Cannula 2 07/21/16 16:00 98.5 108 17 103/59 94 07/21/16 12:00 98.5 92 16 130/80 100 I/O 07/21/16 07/21/16 07/21/16 07/22/16 07/22/16 07/22/16 07:00 15:00 23:00 07:00 15:00 23:00 Intake Total 713 ml 700 ml 130 ml 1204 ml Output Total 800 ml 500 ml Balance -87 ml 700 ml 130 ml 704 ml Intake Oral 0 ml 480 ml IV Total 713 ml 700 ml 30 ml 724 ml Other 100 ml Output Urine Total 800 ml 500 ml # Voids 5 8 # Bowel Movements 4 8 0 Result Diagram: 07/22/16 0635 07/22/16 0635 Objective Remarks GENERAL: 46-year-old female, resting in bed appears comfortable however states that her migraine headache is a 6 out of 10. Patient is able to move/rotate her neck with no difficulty CARDIOVASCULAR: Regular rate and rhythm with no murmur RESPIRATORY: Clear to auscultation. Breath sounds equal bilaterally. GASTROINTESTINAL: Abdomen soft, non-tender, nondistended. Some discomfort with deep palpation in the epigastric region. MUSCULOSKELETAL: Right calf does feel slightly more enlarged on the left but no erythema or pain noted NEUROLOGICAL: Awake and alert. No obvious cranial nerve deficits. Motor grossly within normal limits. Normal speech. PSYCHIATRIC: Appropriate mood and affect; insight and judgment normal. A/P Problem List: (1) Microcytic hypochromic anemia ICD Code: D50.9 Status: Acute (2) Syncope and collapse ICD Code: R55 Status: Acute (3) Leukocytosis ICD Code: D72.829 Status: Acute (4) Hypokalemia ICD Code: E87.6 Status: Acute (5) Migraine headache ICD Code: G43.909 Status: Acute (6) Sinus tachycardia ICD Code: R00.0 Status: Acute Assessment and Plan Migraine headache s/p 10 mg Compazine IV 1/25 mg Benadryl IV 1 and Imitrex. Currently receiving Dilaudid with not much symptom relief. We'll check an MRI of the brain. Will consult neurology for further evaluation and recommendations. She denies any fevers or chills associated with her migraine headaches. Patient tells me that she takes an injection monthly for her migraines however this is different. She does not recall the name of the medication Acetaminophen for fever Sinus tachycardia Status post adenosine 6 mg IV 1 ED. Heart initially 170 resolved with IV fluid bolus 1.25 L Much improved. TSH mildly elevated and free T4 normal. Currently on normal saline at 84 cc an hour History of upper GI ulcer? Status post Protonix 80 mg IV 1 followed by 8 mg per hour drip Hemoglobin stable at 8.5. Status post 3 units packed red blood cells. Gastroenterology/Dr. Chavira following. Status post EGD and colonoscopy which were negative.Pt will need outpatient small bowel study Microcytic hypochromic anemia Likely from slow upper GI blood. Continue to monitor hemoglobin. MSK: PT evaluate and treat Encourage out of bed to chair and ambulation on a regular basis. Patient mentions that her right calf is larger than the left and this has been going on for a yr. I will check an ultrasound as both her and patient are concerned, to rule out any chronic DVT. Hypokalemia Received 60 mEq KCl IV 1/6 hours through peripheral IV Check magnesium. Recheck in a.m. -GI - Protonix - DVT - SCD/pharmacological prophylaxis contraindicated with likely upper GI bleed Discharge Planning From a GI standpoint patient can be discharged however her migraine is still debilitating therefore we will wait for MRI results and follow-up on neurology consult for further recommendations. Repeat hemoglobin in the morning. Follow-up on right leg ultrasound Problem Qualifiers (1) Leukocytosis: Qualified Code: D72.829 - Leukocytosis, unspecified type (2) Migraine headache: Qualified Code: G43.909 - Migraine without status migrainosus, not intractable , unspecified migraine type Lucila Somers MD Jul 22, 2016 09:36 Hypokalemia Received 60 mEq KCl IV 1/6 hours through peripheral IV Check magnesium. Recheck in a.m. Access: - Utilize peripheral IV. Central line if indicated Prophylaxis -GI - Protonix drip - DVT - SCD/pharmacological prophylaxis contraindicated with likely upper GI bleed Problem Qualifiers (1) Leukocytosis: Qualified Code: D72.829 - Leukocytosis, unspecified type (2) Migraine headache: Qualified Code: G43.909 - Migraine without status migrainosus, not intractable , unspecified migraine type Lucila Somers MD Jul 22, 2016 09:36
[2016-07-22] MEDS ORDERED: POTASSIUM CHLORIDE 20 MEQ CONTROLLED RELEASE TAB PO ONE (10:00)
[2016-07-22 10:24] LABS: BETA HCG QUANT LESS THAN 1 MIU/ML (0-5)
[2016-07-22] MEDS: SUMAtriptan INJ 6 MG/0.5 ML VIAL SQ PRN ×3 (11:09→21:13)
--- NOTE | 2016-07-22 11:11 | RADRPT ---
EXAM DATE/TIME: 07/22/2016 10:50 [facility] COMPARISON: No previous studies available for comparison. INDICATIONS : Right leg swelling. MEDICAL HISTORY : GI Bleed. Right leg swelling. SURGICAL HISTORY : Appendectomy. Breast augmentation. ENCOUNTER: Initial ACUITY: >1 year PAIN SCORE: 5/10 LOCATION: Right leg. TECHNIQUE: Venous ultrasound of the leg was performed from the inguinal ligament to the proximal calf. Real-chase e, color Doppler and spectral tracing, compression and augmentation techniques were used. FINDINGS: There is normal compressibility of the deep venous system from the inguinal region to the proximal ca lf. No echogenic clot is seen in the lumen of the common femoral, femoral, popliteal, and posterior tibial veins. There is a normal response of the venous system to proximal and distal augmentation an d respiration. CONCLUSION: 1. No evidence of deep venous thrombosis. Navdeep Reyes MD on July 22, 2016 at 11:09 Board Certified Radiologist. This report was verified electronically.
[2016-07-22 12:00] VITALS: BP 131/66; PULSE 96; RESP 17; TEMP 98.4; O2SAT 96
[2016-07-22 16:00] VITALS: BP 139/69; PULSE 104; RESP 18; TEMP 98.5; O2SAT 100
[2016-07-22] MEDS ORDERED: GADODIAMIDE PF 287 MG/ML 5 ML VIAL (for RAD MRI) IV ONE (16:01)
--- NOTE | 2016-07-22 16:38 | RADRPT ---
EXAM DATE/TIME: 07/22/2016 15:40 [facility] COMPARISON: No previous studies available for comparison. INDICATIONS : Posterior cephalgia. CONTRAST: 13 cc Omniscan (gadodiamide) IV MEDICAL HISTORY : Anemia SURGICAL HISTORY : Tubal ligation. Appendectomy. Breast augmentation ENCOUNTER: Subsequent ACUITY: 1 day PAIN SCORE: 3/10 LOCATION: posterior head TECHNIQUE: Multiplanar, multisequence MRI of the brain was performed both prior to and following the administrat ion of paramagnetic contrast. FINDINGS: CEREBRUM: The ventricles are normal for age. No evidence of midline shift, mass lesion, hemorrhage or acute in farction. No extraaxial fluid collections are seen. The pituitary gland and suprasellar cistern are normal in configuration. WHITE MATTER: No significant signal abnormalities are seen in the white matter. POSTERIOR FOSSA: The cerebellum and brainstem are intact. The 4th ventricle is midline. The cerebellopontine angle is unremarkable. The cerebellar tonsils are normal in position. DIFFUSION IMAGING: No focal areas of restricted diffusion are seen. No evidence of acute infarction. EXTRACRANIAL: The visualized portions of the orbits and paranasal sinuses are unremarkable. POST-CONTRAST: No abnormal areas of parenchymal or dural enhancement. No evidence of blood-brain barrier breakdown. CONCLUSION: Unremarkable exam. Maco Hines MD on July 22, 2016 at 16:35 Board Certified Radiologist. This report was verified electronically.
[2016-07-22 17:29] VITALS: O2SAT 99
--- NOTE | 2016-07-22 19:37 | MB ---
cc: PIYUSH CATES M.D. DATE OF CONSULTATION 07/22/16 REASON FOR CONSULTATION Chronic headache. HISTORY OF PRESENT ILLNESS Ms. García is a very nice 46-year-old female who has a long history of migraine headaches. She came to the ER after having an episode of syncope times four. She had dark tarry stools. She apparently takes 6-8 Excedrin migraines daily. She complains of a severe headache which starts in the occipital region, radiates to the top of her head, becomes severe in nature as well as nausea with this and photophobia. PAST MEDICAL HISTORY 1. History of migraine headaches 2. Appendectomy 3. Tubal ligation, 4. Breast augmentation surgery. MEDICATIONS current, 1. Imitrex subcu. 2. Dilaudid as needed for pain. 3. Percocet p.r.n. pain. 4. Zofran NEUROLOGIC EXAMINATION VITAL SIGNS: Blood pressure 139/__9, pulse is 104, respirations 18, temperature 98 degrees. Higher cortical function is normal. Cranial nerves intact. Motor exam - no focal deficits. IMAGING STUDIES MRI of the brain is normal. LABORATORY DATA White count is 8700, hemoglobin 8.5, hematocrit 24%, platelet count 211,000. Sodium is 139, potassium 3.3, chloride 107, CO2 26, the BUN is four, creatinine 0.46, calcium is 8.4. 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 RECOMMENDATIONS I would like to get an MRI of the cervical spine to rule out herniated disk. We will also resume Topamax, which may be helpful. Continue the Imitrex p.r.n. Also if she does not improve, consider pain management consult for occipital nerve blocks. MD ELEANOR Wilson/ /5:47 PM /7:25 PM
[2016-07-22 20:00] VITALS: BP 133/61; PULSE 103; RESP 16; TEMP 98.6; O2SAT 92
[2016-07-22] MEDS: ONDANSETRON HCL 4 MG/2 ML VIAL IV PRN (20:59)
[2016-07-22] MEDS: TOPIRAMATE 25 MG TAB PO SCH (21:00)
[2016-07-22] MEDS: PANTOPRAZOLE SOD 40 MG DELAYED RELEASE TAB PO SCH (21:00)
[2016-07-23] VITALS: BP 102/56; PULSE 97; RESP 20; TEMP 98.5; O2SAT 98
[2016-07-23] MEDS: HYDROmorphone HCL PF 1 MG/ML VIAL IV PUSH PRN ×4 (01:29→23:32)
[2016-07-23 04:00] VITALS: BP 120/71; PULSE 98; RESP 20; TEMP 98.5; O2SAT 97
[2016-07-23] MEDS: CHLORHEXIDINE GLUCONATE 2 % 1 PACK (2 CLOTHS) TOP SCH (04:00)
[2016-07-23] MEDS: ONDANSETRON HCL 4 MG/2 ML VIAL IV PRN (07:30)
[2016-07-23 08:00] VITALS: BP 120/65; PULSE 86; RESP 16; TEMP 98.4; O2SAT 100
--- NOTE | 2016-07-23 08:19 | RADRPT ---
EXAM DATE/TIME: 07/23/2016 07:40 [facility] COMPARISON: No previous studies available for comparison. INDICATIONS : Pain at base of skull. MEDICAL HISTORY : Anemia. SURGICAL HISTORY : Appendectomy. Tubal ligation. ENCOUNTER: Initial ACUITY: 2 day PAIN SCORE: 3/10 LOCATION: Paraspinal TECHNIQUE: Multiplanar, multisequence MRI examination of the cervical spine was performed. FINDINGS: VERTEBRAE: Normal vertebral body height. Homogeneous marrow signal. ALIGNMENT: No evidence of subluxation. CORD: Normal configuration and signal. POST FOSSA: The cerebellar tonsils are normal in position. C2-C3: Small central disc protrusion abuts the cord without canal or foraminal narrowing. C3-C4: Diffuse disc bulge effaces the ventral thecal sac without significant canal or foraminal. C4-C5: Broad-based left central disc protrusion abuts the cord effacing the ventral thecal sac without signi ficant canal or foraminal narrowing. C5-C6: Diffuse disc bulge with effacement of the ventral thecal sac and mild left foraminal narrowing. C6-C7: Broad-based protrusion abuts the cord effacing the ventral thecal sac. No significant canal or forami nal narrowing. C7-T1: The thecal sac has a normal configuration. There is no evidence of disc herniation or spinal canal s tenosis. The neural foramina are patent bilaterally. CONCLUSION: 1. Multilevel degenerative disc disease without canal stenosis. Abilio James MD on July 23, 2016 at 8:13 Board Certified Radiologist. This report was verified electronically.
[2016-07-23] MEDS: SUMAtriptan INJ 6 MG/0.5 ML VIAL SQ PRN (08:30)
[2016-07-23] MEDS: PANTOPRAZOLE SOD 40 MG DELAYED RELEASE TAB PO SCH ×2 (08:57→21:02)
[2016-07-23] MEDS: SODIUM CHLORIDE 0.9% FLUSH 10 ML FLUSH IV FLUSH SCH ×2 (08:57→21:02)
[2016-07-23] MEDS: TOPIRAMATE 25 MG TAB PO SCH ×2 (08:57→21:01)
[2016-07-23 10:11] LABS: HEMATOCRIT 31.7 % (35.0-46.0); REVIEW FLAG FINAL
[2016-07-23] MEDS: 1/2 NS + KCL 20 MEQ INJ 1,000 ML IV SCH (10:19)
[2016-07-23 10:58] LABS: BICARBONATE 22.7 MEQ/L (21.0-32.0); POTASSIUM 3.4 MEQ/L (3.5-5.1)
[2016-07-23 12:00] VITALS: BP 121/67; PULSE 97; RESP 16; TEMP 98; O2SAT 99
[2016-07-23] MEDS: MAGNESIUM CITRATE SOLN 300 ML BTL PO SCH ×2 (12:00→17:34)
[2016-07-23 16:00] VITALS: BP 116/73; PULSE 84; RESP 16; TEMP 98.4; O2SAT 100
--- NOTE | 2016-07-23 16:08 | HHI.PR ---
Review/Management Diagnosis cervicogenic headaches Plan increase topamax. Diagnosis/Plan: Subjective Subjective Comments No acute events reported Headache a little better today She is tolerating topamax well Active Medications Current Medications Medications (Trade) Dose Ordered Sig/Radha Route Start Time Stop Time Status Last Admin Pantoprazole Sodium 80 mg/ Sodium Chloride 100 ml @ 10 mls/hr Q10H IV 07/20/16 09:45 Hold 07/21/16 05:32 (NS 1000 ml Inj) 1,000 ml @ 84 mls/hr [id number] IV 07/20/16 11:17 Hold 07/21/16 03:30 (NS Flush) 2 ml UNSCH PRN IV FLUSH 07/20/16 11:30 07/20/16 12:10 (NS Flush) 2 ml BID IV FLUSH 07/20/16 21:00 07/23/16 08:57 (Tylenol) 650 mg Q6H PRN PO 07/20/16 11:30 (Zofran Inj) 4 mg Q6H PRN IV 07/20/16 11:30 07/23/16 07:30 Miscellaneous Information 1 [id number] XX 07/20/16 11:30 (Chlorhexidine 2% Cloth) 3 pack Taper DAILY@04 TOP 07/21/16 04:00 07/17/17 03:59 07/21/16 03:31 (Chlorhexidine 2% Cloth) 3 pack UNSCH PRN TOP 07/20/16 11:30 Sumatriptan Succinate 6 mg 6 mg UNSCH PRN SQ 07/20/16 11:45 07/23/16 08:30 (1/2 NS + KCl 20 Meq Inj) 1,000 ml @ 84 mls/hr [id number] IV 07/21/16 12:30 07/23/16 10:19 (Percocet 5-325 Mg) 1 tab Q6H PRN PO 07/21/16 17:45 (Dilaudid Pf Inj) 1 mg Q4H PRN IV PUSH 07/21/16 17:45 07/23/16 05:43 (Protonix) 40 mg Q12HR PO 07/22/16 21:00 07/23/16 08:57 (Topamax) 50 mg Q12HR PO 07/22/16 21:00 07/23/16 08:57 (Citroma Liq) 300 ml Q6H PO 07/23/16 12:00 07/23/16 18:01 07/23/16 12:00 (Dulcolax Ec) 10 mg ONCE ONCE PO 07/23/16 18:00 07/23/16 18:01 (Dulcolax Ec) 10 mg HS PO 07/23/16 21:00 07/23/16 21:01 Allergies Allergies Coded Allergies Codeine (Verified Allergy, Mild, ITCHING, 07/20/16) Keflex (Verified Allergy, Mild, 07/20/16) Lortab (Verified Allergy, Mild, 07/20/16) Exam I&O / VS 07/22/16 07/22/16 07/23/16 15:00 23:00 07:00 Intake Total 960 ml 360 ml 1608 ml Output Total 25 ml 4 ml Balance 960 ml 335 ml 1604 ml Intake Oral 960 ml 360 ml 600 ml IV Total 1008 ml Output Urine Total 25 ml Stool Total 4 ml # Voids 5 # Bowel Movements 1 Vital Signs Date Time Temp Pulse Resp B/P Pulse Ox O2 Delivery O2 Flow Rate FiO2 07/23/16 12:00 98.0 97 16 121/67 99 07/23/16 10:30 16 07/23/16 08:00 99 Room Air 07/23/16 08:00 98.4 86 16 120/65 100 07/23/16 04:00 98.5 98 20 120/71 97 07/23/16 00:00 98.5 97 20 102/56 98 07/22/16 20:00 103 07/22/16 20:00 98.6 103 16 133/61 92 07/22/16 17:29 99 21 Exam Comments alert, speech normal CN intact Motor--no focal sx Objective Radiology Results MRI cervical spine--cervical spondylosis with no cord compression Micro and Labs Laboratory Tests Test 07/23/16 09:35 Hemoglobin 10.4 Hematocrit 31.7 Sodium Level 139 Potassium Level 3.4 Chloride Level 106 Carbon Dioxide Level 22.7 Anion Gap 10 Blood Urea Nitrogen 4 Creatinine 0.68 Estimat Glomerular Filtration 94 Rate Random Glucose 142 Calcium Level 8.9 Jorden Alberto PhD Jul 23, 2016 16:08
[2016-07-23 16:33] LABS: HEMATOCRIT 30.7 % (35.0-46.0); REVIEW FLAG FINAL
--- NOTE | 2016-07-23 16:43 | HHI.PR ---
Subjective Remarks Follow up migraine headache, nausea, and GI bleed. Patient seen and examined in room by myself and Dr. Somers. Reports headache and neck pain more controlled with current migraine regimen. At this time, headache is a 3/10 on pain scale. Does report current abdominal pain as well as murray red blood with bowel movement a few moments ago. Patient states nausea is relieved with PRN Zofran. Denies any recent fever, chills, cough or shortness of breath. Spoke Dr. Hernandez, plan is to do a STAT bleeding scan and await STAT H & H. Objective Vitals Vital Signs Date Time Temp Pulse Resp B/P Pulse Ox O2 Delivery O2 Flow Rate FiO2 07/23/16 12:00 98.0 97 16 121/67 99 07/23/16 10:30 16 07/23/16 08:00 99 Room Air 07/23/16 08:00 98.4 86 16 120/65 100 07/23/16 04:00 98.5 98 20 120/71 97 07/23/16 00:00 98.5 97 20 102/56 98 07/22/16 20:00 103 07/22/16 20:00 98.6 103 16 133/61 92 07/22/16 17:29 99 21 I/O 07/22/16 07/22/16 07/22/16 07/23/16 07/23/16 07/23/16 07:00 15:00 23:00 07:00 15:00 23:00 Intake Total 1204 ml 960 ml 360 ml 1608 ml Output Total 500 ml 25 ml 4 ml Balance 704 ml 960 ml 335 ml 1604 ml Intake Oral 480 ml 960 ml 360 ml 600 ml IV Total 724 ml 1008 ml Output Urine Total 500 ml 25 ml Stool Total 4 ml # Voids 5 # Bowel Movements 0 1 Result Diagram: 07/23/16 0935 07/23/16 0935 Imaging Last Impressions Cervical Spine MRI 07/23/16 0000 Signed Impressions: Service Date/Time: Saturday, July 23, 2016 07:40 - CONCLUSION: 1. Multilevel degenerative disc disease without canal stenosis. Abilio James MD Lower Extremity Ultrasound 07/22/16 0000 Signed Impressions: Service Date/Time: Friday, July 22, 2016 10:50 - CONCLUSION: 1. No evidence of deep venous thrombosis. Navdeep Reyes MD Brain MRI 07/22/16 0000 Signed Impressions: Service Date/Time: Friday, July 22, 2016 15:40 - CONCLUSION: Unremarkable exam. Maco Hines MD Objective Remarks GENERAL: Well-nourished, well-developed patient in NAD. Appears more comfortable today HEENT: Normocephalic. Atraumatic. Pupils equal and round. No scleral icterus. No injection or drainage. No nasal bleeding or discharge. Mucous membranes pink and moist. CARDIOVASCULAR: Regular rate and rhythm. S1, S2 noted. No murmur appreciated. RESPIRATORY: No accessory muscle use. Clear to auscultation. Breath sounds equal bilaterally. GASTROINTESTINAL: Abdomen soft, tender throughout to palpation. Nondistended. Normoactive bowel sounds x4. MUSCULOSKELETAL: No obvious deformities. Extremities without edema. NEUROLOGICAL: Awake and alert. No obvious cranial nerve deficits. Motor grossly within normal limits. 5/5 muscle strength in bilateral upper and lower extremities. Normal speech. PSYCHIATRIC: Appropriate mood and affect; insight and judgment normal. Urinary Catheter: No Vascular Central Line Catheter: No A/P Problem List: (1) Microcytic hypochromic anemia ICD Code: D50.9 Status: Acute (2) Syncope and collapse ICD Code: R55 Status: Acute (3) Leukocytosis ICD Code: D72.829 Status: Acute (4) Hypokalemia ICD Code: E87.6 Status: Acute (5) Migraine headache ICD Code: G43.909 Status: Acute (6) Sinus tachycardia ICD Code: R00.0 Status: Acute Assessment and Plan Migraine headache s/p 10 mg Compazine IV 1/25 mg Benadryl IV 1 and Imitrex PRN. MRI brain images reviewed by me, unremarkable exam. MRI cervical spine reviewed by me, multilevel degenerative disc disease without canal stenosis. Neurology following , increase Topamax 50 mg PO Q8hr. Continue Imitrex sq and change Dilaudid IV to q8hr prn breakthrough pain. Acetaminophen PRN for fever. Sinus tachycardia Status post adenosine 6 mg IV 1 ED. Heart initially 170 resolved with IV fluid bolus 1.25 L resolved TSH mildly elevated and free T4 normal. Currently on normal saline at 84 cc an hour, continue IVF. History of upper GI ulcer? Status post Protonix 80 mg IV 1 followed by 8 mg per hour drip Reviewed Hemoglobin 10.4 today 07/23. Although, patient has been having murray red blood with bowel movement today. STAT H & H ordered, pending results. Case discussed w Gastroenterology/Dr. Chavira, status post EGD and colonoscopy which were negative. STAT bleeding scan ordered for today 07/23 by GI. Status post 3 units packed red blood cells. Microcytic hypochromic anemia Likely from slow upper GI blood. Continue to monitor hemoglobin. MSK: PT evaluate and treat Encourage out of bed to chair and ambulation on a regular basis. Follow up patient mentioning right calf larger than the left and has been present for one year - Lower extremity ultrasound reviewed by me, no evidence of DVT. Hypokalemia S/p potassium replacement. Continue 1/2 NS with 20 meq K at 84 ml/hr. Potassium level 3.4 today. give One time KCL 20 meq PO x 1 now. Magnesium 2.3, on 07/22. Recheck BMP in a.m. GI Prophylaxis Protonix DVT Prophylaxis SCD/pharmacological prophylaxis contraindicated with rectum bleeding Written by Azul Saab, acting as scribe for Dr. Somers on 07/23/16 at 16:43. This note was transcribed by scribe Azul Saab. I, Dr. Lucila Somers personally performed the history, physical exam, and medical decision making; and confirmed the accuracy of the information in the transcribed note. Authenticated by Dr. Lucila Somers on 07/23/16 at 16:43 Discharge Planning GI standpoint still following with STAT bleeding scan today and continued murray red blood with bowel movements. Migraine is much improved with migraine medication regimen, Neurology following. MRI brain and MRI cervical spine results reviewed, encourage neurology recommendations. Problem Qualifiers (1) Leukocytosis: Qualified Code: D72.829 - Leukocytosis, unspecified type (2) Migraine headache: Qualified Code: G43.909 - Migraine without status migrainosus, not intractable , unspecified migraine type Azul Saab Jul 23, 2016 16:43 Lucila Somers MD Jul 23, 2016 17:41
[2016-07-23] MEDS ORDERED: POTASSIUM CHLORIDE 20 MEQ CONTROLLED RELEASE TAB PO ONE (16:45)
--- NOTE | 2016-07-23 17:57 | HHI.GIFU ---
Subjective Remarks Patient comfortable in bed reports 3 bloody bowel movements with clots today Objective Vitals I&O Vital Signs Date Time Temp Pulse Resp B/P Pulse Ox O2 Delivery O2 Flow Rate FiO2 07/23/16 16:00 98.4 84 16 116/73 100 07/23/16 12:00 98.0 97 16 121/67 99 07/23/16 10:30 16 07/23/16 08:00 99 Room Air 07/23/16 08:00 98.4 86 16 120/65 100 07/23/16 04:00 98.5 98 20 120/71 97 07/23/16 00:00 98.5 97 20 102/56 98 07/22/16 20:00 103 07/22/16 20:00 98.6 103 16 133/61 92 I/O 07/22/16 07/22/16 07/22/16 07/23/16 07/23/16 07/23/16 07:00 15:00 23:00 07:00 15:00 23:00 Intake Total 1204 ml 960 ml 360 ml 1608 ml 600 ml Output Total 500 ml 25 ml 4 ml Balance 704 ml 960 ml 335 ml 1604 ml 600 ml Intake Oral 480 ml 960 ml 360 ml 600 ml 600 ml IV Total 724 ml 1008 ml Output Urine Total 500 ml 25 ml Stool Total 4 ml # Voids 5 # Bowel Movements 0 1 5 Laboratory Laboratory Tests Test 07/23/16 07/23/16 09:35 15:56 Hemoglobin 10.4 10.0 Hematocrit 31.7 30.7 Sodium Level 139 Potassium Level 3.4 Chloride Level 106 Carbon Dioxide Level 22.7 Anion Gap 10 Blood Urea Nitrogen 4 Creatinine 0.68 Estimat Glomerular Filtration 94 Rate Random Glucose 142 Calcium Level 8.9 Imaging Last 48 hours Impressions Cervical Spine MRI 07/23/16 0000 Signed Impressions: Service Date/Time: Saturday, July 23, 2016 07:40 - CONCLUSION: 1. Multilevel degenerative disc disease without canal stenosis. Abilio James MD Lower Extremity Ultrasound 07/22/16 0000 Signed Impressions: Service Date/Time: Friday, July 22, 2016 10:50 - CONCLUSION: 1. No evidence of deep venous thrombosis. Navdeep Reyes MD Brain MRI 07/22/16 0000 Signed Impressions: Service Date/Time: Friday, July 22, 2016 15:40 - CONCLUSION: Unremarkable exam. Maco Hines MD Physical Exam HEENT: Normocephalic atraumatic throat is clear NECK: Neck is supple, CHEST: Chest is clear to auscultation and percussion. CARDIAC: Regular rate and rhythm with no murmur gallop or rubs. ABDOMEN: Soft, nondistended, nontender; no hepatosplenomegaly; bowel sounds are present in all four quadrants. EXTREMITIES: No clubbing, cyanosis, or edema. SKIN: Normal; no rash; no jaundice. [employer]: No focal deficits; alert and oriented times three. Assessment and Plan Plan ASSESSMENT: - Upper GIB with black emesis and melena. Pt with hx of migraines and takes large amounts of NSAIDs- at least 4 excedrin daily along with BC powder and Motrin, usually at least 6 excedrin every other day. Had 8 excedrin with BC powder yesterday. Had syncopal episode on Monday, 911 came and evaluated her, but she refused to go to the ER. She has been having epigastric discomfort, hematemesis, melena. H/H 5.4/17.1. She is tachycardic in 130's, B/P stable. Blood has been ordered, but not ready yet. Protonix Gtt. D/W patient EGD today. She does report that she was told that she had bleeding ulcer based on imaging, ? upper gi series 20 years ago but has not been. - Severe anemia. H/H 5.4/17.1. Blood ordered/pending. - Recent syncopal episode, likely related to above. She reports that she had syncopal episode Monday night, was evaluated by 911, but refused to go to the hospital. - Hypokalemia. K+ 3.0, replacement per primary - Migraines, with significant NSAID use. PLAN: -So far workup has been negative -We will obtain a bleeding scan -Continue with current supportive care -Probable outpatient capsule endoscopy - Agree with transfusions - IVF - Monitor HH - Transfuse as needed - Avoid NSAIDs - Supportive care Roney Marlow MD Jul 23, 2016 17:57
[2016-07-23] MEDS ORDERED: BISACODYL EC 5 MG TABEC PO ONE (18:00)
[2016-07-23 20:00] VITALS: BP 161/98; PULSE 109; PULSE 81; RESP 19; TEMP 98.2; O2SAT 100
--- NOTE | 2016-07-23 20:27 | RADRPT ---
EXAM DATE/TIME: 07/23/2016 17:55 [facility] COMPARISON: No previous studies available for comparison. INDICATIONS : Phillip red blood in stool. Abdominal pain. DOSE: 20.2 mCi Tc99m Ultratag labeled red blood cells IV IMAGIN hrs MEDICAL HISTORY : Syncope. SURGICAL HISTORY : Tubal ligation. Appendectomy. Breast augumentation. ENCOUNTER: Initial ACUITY: 1 day PAIN SCALE: 3/10 LOCATION: Bilateral Abdomen. TECHNIQUE: Following the modified in vitro labeling of autologous red cells, dynamic continuous images were acqu ired for the specified interval. FINDINGS: BIODISTRIBUTION: There is a very good labeling of red cells without significant uptake in the gastric wall. There is good delineation of the blood pool of the spleen and abdominal vessels. BLEEDING: No episodes of active GI bleeding are observed during specified interval of continuous observation. CONCLUSION: Unable to localize the site of the patient's gastrointestinal bleeding at this time. Galina Bartlett MD on July 23, 2016 at 20:25 Board Certified Radiologist. This report was verified electronically.
[2016-07-23] MEDS ORDERED: BISACODYL EC 5 MG TABEC PO SCH (21:00)
[2016-07-23] MEDS: oxyCODONE/ACETAMINOPHEN 5 MG/325 MG TAB PO PRN (21:07)
[2016-07-23] MEDS ORDERED: TEMAZEPAM 7.5 MG CAP PO ONE (23:45)
[2016-07-24] VITALS (7 sets, daily range): BP systolic 101–133; BP diastolic 55–77; PULSE 69–96; RESP 12–20; TEMP 97.2–98.4; O2SAT 98–100
[2016-07-24] MEDS: 1/2 NS + KCL 20 MEQ INJ 1,000 ML IV SCH ×2 (00:05→11:00)
[2016-07-24] MEDS: SUMAtriptan INJ 6 MG/0.5 ML VIAL SQ PRN (03:01)
[2016-07-24] MEDS: CHLORHEXIDINE GLUCONATE 2 % 1 PACK (2 CLOTHS) TOP SCH (03:47)
[2016-07-24] MEDS: TOPIRAMATE 25 MG TAB PO SCH ×3 (05:52→20:13)
[2016-07-24] MEDS: HYDROmorphone HCL PF 1 MG/ML VIAL IV PUSH PRN (08:19)
[2016-07-24] MEDS: PANTOPRAZOLE SOD 40 MG DELAYED RELEASE TAB PO SCH ×2 (08:20→20:13)
[2016-07-24] MEDS: SODIUM CHLORIDE 0.9% FLUSH 10 ML FLUSH IV FLUSH SCH ×2 (08:21→20:12)
[2016-07-24 11:20] LABS: BICARBONATE 25.8 MEQ/L (21.0-32.0); POTASSIUM 3.9 MEQ/L (3.5-5.1)
--- NOTE | 2016-07-24 14:24 | RADRPT ---
EXAM DATE/TIME: 07/24/2016 10:11 [facility] COMPARISON: No previous studies available for comparison. INDICATIONS : Abdomen Pain FLUORO TIME: 0 minutes IMAGE COUNT: 9 CONTRAST: Entero Vu 24% Barium Sulfate (24% w/v, 20% w/w) IMAGING TIME(S): 15 min, 30 min, 45 min, 1 hr, 1.5 hrs, 3 hrs MEDICAL HISTORY : None. SURGICAL HISTORY : Tubal ligation. Appendectomy. Breast augumentation. ENCOUNTER: Initial ACUITY: 1 day PAIN SCORE: 3/10 LOCATION: Bilateral Abdomen FINDINGS: Preliminary film is unremarkable. The stomach is grossly unremarkable. Examination of the small bowel demonstrates normal mucosal pattern involving the jejunum and ileum. There is no evidence of mass or obstruction. No intraluminal filling defects are identified. Small bowel transit time is 180 minutes. CONCLUSION: Mildly prolonged small bowel transit time. Otherwise unremarkable small bowel examination. Ashish Monreal MD on July 24, 2016 at 14:21 Board Certified Radiologist. This report was verified electronically.
[2016-07-24] MEDS: oxyCODONE/ACETAMINOPHEN 5 MG/325 MG TAB PO PRN ×2 (14:36→23:29)
--- NOTE | 2016-07-24 16:25 | HHI.PR ---
Subjective Remarks Pt states that she is still bleeding. She feels dizzy at times whenever she sits up. She denies any CP/SOB/N/V. Pt tells me that her period started today. In addition, pt also states that she wants to eat regular food and that she is really hungry Family at bedside. discussed w RN, apparently pt never told her she was bleeding. She did mention to RN that she had started her period. Objective Vitals Vital Signs Date Time Temp Pulse Resp B/P Pulse Ox O2 Delivery O2 Flow Rate FiO2 07/24/16 12:00 97.9 96 18 101/55 99 07/24/16 08:50 Room Air 07/24/16 08:50 76 07/24/16 08:00 98.1 85 12 105/55 98 07/24/16 04:00 97.2 75 18 104/59 100 07/24/16 00:00 97.9 69 17 101/55 100 07/23/16 20:00 81 07/23/16 20:00 98.2 109 19 161/98 100 07/23/16 20:00 Room Air I/O 07/23/16 07/23/16 07/23/16 07/24/16 07/24/16 07/24/16 07:00 15:00 23:00 07:00 15:00 23:00 Intake Total 1608 ml 600 ml 0 ml 100 ml Output Total 4 ml Balance 1604 ml 600 ml 0 ml 100 ml Intake Oral 600 ml 600 ml 0 ml 100 ml IV Total 1008 ml Stool Total 4 ml # Voids 2 2 # Bowel Movements 5 Result Diagram: 07/23/16 1556 07/24/16 0804 Imaging Last Impressions Small Bowel X-Ray 07/23/16 0000 Signed Impressions: Service Date/Time: Sunday, July 24, 2016 10:11 - CONCLUSION: Mildly prolonged small bowel transit time. Otherwise unremarkable small bowel examination. Ashish Monreal MD GI Bleed Scan Nuclear Medicine 07/23/16 0000 Signed Impressions: Service Date/Time: Saturday, July 23, 2016 17:55 - CONCLUSION: Unable to localize the site of the patient's gastrointestinal bleeding at this time. Galina Bartlett MD Cervical Spine MRI 07/23/16 0000 Signed Impressions: Service Date/Time: Saturday, July 23, 2016 07:40 - CONCLUSION: 1. Multilevel degenerative disc disease without canal stenosis. Abilio James MD Lower Extremity Ultrasound 07/22/16 0000 Signed Impressions: Service Date/Time: Friday, July 22, 2016 10:50 - CONCLUSION: 1. No evidence of deep venous thrombosis. Navdeep Reyes MD Brain MRI 07/22/16 0000 Signed Impressions: Service Date/Time: Friday, July 22, 2016 15:40 - CONCLUSION: Unremarkable exam. Maco Hines MD Objective Remarks GENERAL: Well-nourished, well-developed patient in NAD. Appears more comfortable today HEENT: Normocephalic. Atraumatic. Pupils equal and round. No scleral icterus. No injection or drainage. No nasal bleeding or discharge. Mucous membranes pink and moist. CARDIOVASCULAR: Regular rate and rhythm. S1, S2 noted. No murmur appreciated. RESPIRATORY: No accessory muscle use. Clear to auscultation. Breath sounds equal bilaterally. GASTROINTESTINAL: Abdomen soft, tender throughout to palpation. Nondistended. Normoactive bowel sounds x4. MUSCULOSKELETAL: No obvious deformities. Extremities without edema. NEUROLOGICAL: Awake and alert. No obvious cranial nerve deficits. Motor grossly within normal limits. 5/5 muscle strength in bilateral upper and lower extremities. Normal speech. PSYCHIATRIC: Appropriate mood and affect; insight and judgment normal. A/P Problem List: (1) Microcytic hypochromic anemia ICD Code: D50.9 Status: Acute (2) Syncope and collapse ICD Code: R55 Status: Acute (3) Leukocytosis ICD Code: D72.829 Status: Acute (4) Hypokalemia ICD Code: E87.6 Status: Acute (5) Migraine headache ICD Code: G43.909 Status: Acute (6) Sinus tachycardia ICD Code: R00.0 Status: Acute Assessment and Plan Migraine headache s/p 10 mg Compazine IV 1/25 mg Benadryl IV 1 and Imitrex PRN. MRI brain images reviewed by me, unremarkable exam. MRI cervical spine reviewed by me, multilevel degenerative disc disease without canal stenosis. Neurology following , increase Topamax 50 mg PO Q8hr. Continue Imitrex sq and Dilaudid . Acetaminophen PRN for fever. Sinus tachycardia Status post adenosine 6 mg IV 1 ED. Heart initially 170 resolved with IV fluid bolus 1.25 L resolved TSH mildly elevated and free T4 normal. Currently on normal saline at 84 cc an hour, continue IVF. GI bleed Status post Protonix 80 mg IV 1 followed by 8 mg per hour drip last Hemoglobin 10 on 07/23. STAT H & H ordered, pending results and continue to trend q6hrs. Apparently pt didn't mention to RN that she was bleeding. status post EGD and colonoscopy which were negative. bleeding scan didn't show site of bleed. Small bowel follow through showed Mildly prolonged small bowel transit time otherwise unremarkable Status post 3 units packed red blood cells. will hold another 2 units of PRBC and pending H&H result will transfuse. Pt tells me that she also started her period today: will start her on ferrous sulfate 325mg po bid Microcytic hypochromic anemia Likely from slow upper GI blood. Continue to monitor hemoglobin. MSK: PT evaluate and treat Encourage out of bed to chair and ambulation on a regular basis. Follow up patient mentioning right calf larger than the left and has been present for one year - Lower extremity ultrasound reviewed by me, no evidence of DVT. Hypokalemia S/p potassium replacement. resolved. Magnesium 2.3, on 07/22. GI Prophylaxis Protonix DVT Prophylaxis SCD/pharmacological prophylaxis contraindicated with rectum bleeding Discharge Planning f/u hb level, transfuse as needed. awaiting final recs from GI Problem Qualifiers (1) Leukocytosis: Qualified Code: D72.829 - Leukocytosis, unspecified type (2) Migraine headache: Qualified Code: G43.909 - Migraine without status migrainosus, not intractable , unspecified migraine type Lucila Somers MD Jul 24, 2016 16:25
[2016-07-24] MEDS ORDERED: ACETAMINOPHEN 325 MG TAB PO PRN (16:30)
[2016-07-24] MEDS ORDERED: diphenhydrAMINE HCL 25 MG CAP PO PRN (16:30)
[2016-07-24] MEDS ORDERED: FUROSEMIDE 20 MG/2 ML VIAL IV ONE (16:30)
[2016-07-24] MEDS ORDERED: SODIUM CHLOR 0.9% 250 ML INJ 250 ML IV ONE (16:30)
[2016-07-24] MEDS: NS + KCL 20 MEQ INJ 1,000 ML IV SCH (17:45)
[2016-07-24 18:28] LABS: HEMATOCRIT 32.1 % (35.0-46.0); REVIEW FLAG FINAL
[2016-07-24] MEDS: FERROUS SULFATE 325 MG (65 MG ELEMENTAL IRON) TAB PO SCH (20:14)
--- NOTE | 2016-07-24 23:27 | HHI.GIFU ---
Subjective Remarks Patient reports several episodes of bright red blood per rectum today otherwise doing well and has no complaints Objective Vitals I&O Vital Signs Date Time Temp Pulse Resp B/P Pulse Ox O2 Delivery O2 Flow Rate FiO2 07/24/16 20:00 98.4 91 20 133/69 99 07/24/16 16:00 98.2 91 16 111/77 100 07/24/16 12:00 97.9 96 18 101/55 99 07/24/16 08:50 Room Air 07/24/16 08:50 76 07/24/16 08:00 98.1 85 12 105/55 98 07/24/16 04:00 97.2 75 18 104/59 100 07/24/16 00:00 97.9 69 17 101/55 100 I/O 07/23/16 07/23/16 07/23/16 07/24/16 07/24/16 07/24/16 07:00 15:00 23:00 07:00 15:00 23:00 Intake Total 1608 ml 600 ml 0 ml 100 ml Output Total 4 ml Balance 1604 ml 600 ml 0 ml 100 ml Intake Oral 600 ml 600 ml 0 ml 100 ml IV Total 1008 ml Stool Total 4 ml # Voids 2 2 # Bowel Movements 5 Laboratory Laboratory Tests Test 07/24/16 07/24/16 07/24/16 08:04 17:51 17:52 Sodium Level 140 Potassium Level 3.9 Chloride Level 107 Carbon Dioxide Level 25.8 Anion Gap 7 Blood Urea Nitrogen 7 Creatinine 0.74 Estimat Glomerular Filtration 85 Rate Random Glucose 76 Calcium Level 8.6 Hemoglobin 10.2 Hematocrit 32.1 Blood Type O POSITIVE Antibody Screen NEGATIVE Crossmatch Leukocyte-Reduced Red Blood Cells Blood Bank Comment Physical Exam HEENT: Normocephalic atraumatic throat is clear NECK: Neck is supple, CHEST: Chest is clear to auscultation and percussion. CARDIAC: Regular rate and rhythm with no murmur gallop or rubs. ABDOMEN: Soft, nondistended, nontender; no hepatosplenomegaly; bowel sounds are present in all four quadrants. EXTREMITIES: No clubbing, cyanosis, or edema. SKIN: Normal; no rash; no jaundice. [employer]: No focal deficits; alert and oriented times three. Assessment and Plan Plan ASSESSMENT: - Upper GIB with black emesis and melena. Pt with hx of migraines and takes large amounts of NSAIDs- at least 4 excedrin daily along with BC powder and Motrin, usually at least 6 excedrin every other day. Had 8 excedrin with BC powder yesterday. Had syncopal episode on Monday, 911 came and evaluated her, but she refused to go to the ER. She has been having epigastric discomfort, hematemesis, melena. H/H 5.4/17.1. She is tachycardic in 130's, B/P stable. Blood has been ordered, but not ready yet. Protonix Gtt. D/W patient EGD today. She does report that she was told that she had bleeding ulcer based on imaging, ? upper gi series 20 years ago but has not been. - Severe anemia. H/H 5.4/17.1. Blood ordered/pending. - Recent syncopal episode, likely related to above. She reports that she had syncopal episode Monday night, was evaluated by 911, but refused to go to the hospital. - Hypokalemia. K+ 3.0, replacement per primary - Migraines, with significant NSAID use. PLAN: -So far workup has been negative and in spite of that she continues to bleed therefore we will repeat colonoscopy -Continue with current supportive care -Probable outpatient capsule endoscopy if colonoscopy is negative - Agree with transfusions - IVF - Monitor HH - Transfuse as needed - Avoid NSAIDs - Supportive care Roney Marlow MD Jul 24, 2016 23:27
[2016-07-24] MEDS ORDERED: MAGNESIUM CITRATE SOLN 300 ML BTL PO ONE (23:30)
[2016-07-24 23:46] LABS: HEMATOCRIT 32.5 % (35.0-46.0); REVIEW FLAG FINAL
[2016-07-25] VITALS (7 sets, daily range): BP systolic 109–119; BP diastolic 53–71; PULSE 75–98; RESP 16–20; TEMP 98.2–98.6; O2SAT 99–100
[2016-07-25] MEDS: CHLORHEXIDINE GLUCONATE 2 % 1 PACK (2 CLOTHS) TOP SCH ×2 (03:58→23:50)
[2016-07-25] MEDS: NS + KCL 20 MEQ INJ 1,000 ML IV SCH ×2 (05:10→16:50)
[2016-07-25] MEDS: TOPIRAMATE 25 MG TAB PO SCH ×3 (05:10→22:06)
[2016-07-25] MEDS ORDERED: MAGNESIUM CITRATE SOLN 300 ML BTL PO ONE (06:00)
[2016-07-25] MEDS: oxyCODONE/ACETAMINOPHEN 5 MG/325 MG TAB PO PRN ×3 (06:40→22:06)
[2016-07-25 06:53] LABS: HEMATOCRIT 29.6 % (35.0-46.0); MEAN CORPUSCULAR HEMOGLOBIN 25.9 PG (27.0-34.0); MEAN CORPUSCULAR HGB CONC 32.8 % (32.0-36.0); PLATELET COUNT 291 TH/MM3 (150-450); RED BLOOD COUNT 3.75 MIL/MM3 (4.00-5.30); RED CELL DISTRIBUTION WIDTH 17.3 % (11.6-17.2); REVIEW FLAG FINAL; WHITE BLOOD COUNT 5.9 TH/MM3 (4.0-11.0)
[2016-07-25] MEDS: SODIUM CHLORIDE 0.9% FLUSH 10 ML FLUSH IV FLUSH SCH ×2 (09:00→22:07)
[2016-07-25] MEDS ORDERED: PROPOFOL 200 MG/20 ML AMP IV ONE (11:09)
--- NOTE | 2016-07-25 11:28 | GIPROC ---
[facility] [address] [facility]. [facility], [address] COLONOSCOPY PROCEDURE REPORT EXAM DATE: 07/25/2016 PATIENT NAME: Janny García MR #: [id number] BIRTHDATE: 1970 ENDOSCOPIST: Isaías Gordillo MD ORDER #: [id number] JUNIOR NETWORK ENGINEER: Paola Hernandez and Segundo Valencia STATUS: inpatient INDICATIONS: The patient is a 46 yr old female here for a colonoscopy due to hematochezia PROCEDURE PERFORMED: Colonoscopy, diagnostic Thermal destruction internal hemorrhoids MEDICATIONS: None and Per Anesthesia. PREP QUALITY: The Gresham Bowel Prep Score was Right colon 1, Mid colon 2, and Left colon 1. Total = 4. PREP TYPE:GoLytely ESTIMATED BLOOD LOSS: None CONSENT: The patient understands the risks and benefits of the procedure and understands that these risks include, but are not limited to: sedation, allergic reaction, infection, perforation and/or bleeding. Alternative means of evaluation and treatment include, among others: physical exam, x-rays, and/or surgical intervention. The patient elects to proceed with this endoscopic procedure. medical equipment was checked for proper function. Hand hygiene and appropriate measures for infection prevention was taken. After the risks, benefits and alternatives of the procedure were thoroughly explained, Informed consent was verified, confirmed and timeout was successfully executed by the treatment team. A digital exam revealed external hemorrhoids The Pentax [id number] endoscope was introduced through the anus and advanced to the cecum, which was identified by both the appendix and ileocecal valve. The instrument was then slowly withdrawn as the colon was fully examined. COLON FINDINGS: The colonic mucosa appeared normal throughout the entire examined colon. Barium throughout the colon, no blood seen. Thermal destruction of hemorrhoids performed. Retroflexed views revealed internal hemorrhoids and Retroflexed views revealed medium internal hemorrhoids The scope was then completely withdrawn from the patient and the procedure terminated. PROCEDURE WITHDRAWAL TIME:7minutes ADVERSE EVENTS: There were no complications. IMPRESSIONS: 1. The colonic mucosa appeared normal throughout the entire examined colon 2. Barium throughout the colon, no blood seen 3. Retroflexed views revealed internal hemorrhoids 4. Retroflexed views revealed medium internal hemorrhoids 5. Revealed external hemorrhoids RECOMMENDATIONS: 1. Benefiber 2 tsp daily 2. Hydrocortisone supp 30 mg AL bid. If further bleeding consult CRS for hemorrhoidectomy RECALL: Return 5 years Colonoscopy Isaías Gordillo MD eSigned: Isaías Gordillo MD 07/25/2016 11:28 AM cc: PATIENT NAME: Janny García MR#: [id number]
[2016-07-25 12:37] LABS: HEMATOCRIT 32.8 % (35.0-46.0); REVIEW FLAG FINAL
--- NOTE | 2016-07-25 13:32 | HHI.PR ---
Subjective Remarks Pt feels well. She is happy she can eat. She tells me that Dr. Gordillo told her that he wants to monitor her Hb levels overnight prior to discharging her. Denies any CP/SOB/N/V Objective Vitals Vital Signs Date Time Temp Pulse Resp B/P Pulse Ox O2 Delivery O2 Flow Rate FiO2 07/25/16 11:47 75 18 96/57 100 07/25/16 11:37 87 18 104/66 97 07/25/16 11:27 98.7 80 18 109/65 100 07/25/16 10:36 98.6 75 16 109/57 100 07/25/16 08:00 98.6 75 16 109/57 100 07/25/16 08:00 Room Air 07/25/16 04:00 98.2 79 18 111/53 99 07/25/16 00:00 98.6 98 18 119/65 100 07/24/16 20:00 98.4 91 20 133/69 99 07/24/16 20:00 Room Air 07/24/16 16:00 98.2 91 16 111/77 100 I/O 07/24/16 07/24/16 07/24/16 07/25/16 07/25/16 07/25/16 07:00 15:00 23:00 07:00 15:00 23:00 Intake Total 100 ml 600 ml Balance 100 ml 600 ml Intake Oral 100 ml Other 600 ml # Voids 2 Result Diagram: 07/25/16 1215 07/24/16 0804 Imaging Last Impressions Small Bowel X-Ray 07/23/16 0000 Signed Impressions: Service Date/Time: Sunday, July 24, 2016 10:11 - CONCLUSION: Mildly prolonged small bowel transit time. Otherwise unremarkable small bowel examination. Ashish Monreal MD GI Bleed Scan Nuclear Medicine 07/23/16 0000 Signed Impressions: Service Date/Time: Saturday, July 23, 2016 17:55 - CONCLUSION: Unable to localize the site of the patient's gastrointestinal bleeding at this time. Galina Bartlett MD Cervical Spine MRI 07/23/16 0000 Signed Impressions: Service Date/Time: Saturday, July 23, 2016 07:40 - CONCLUSION: 1. Multilevel degenerative disc disease without canal stenosis. Abilio James MD Lower Extremity Ultrasound 07/22/16 0000 Signed Impressions: Service Date/Time: Friday, July 22, 2016 10:50 - CONCLUSION: 1. No evidence of deep venous thrombosis. Navdeep Reyes MD Brain MRI 07/22/16 0000 Signed Impressions: Service Date/Time: Friday, July 22, 2016 15:40 - CONCLUSION: Unremarkable exam. Maco Hines MD Objective Remarks GENERAL: Well-nourished, well-developed patient in NAD. Appears more comfortable today CARDIOVASCULAR: Regular rate and rhythm. S1, S2 noted. No murmur appreciated. RESPIRATORY: No accessory muscle use. Clear to auscultation. Breath sounds equal bilaterally. GASTROINTESTINAL: Abdomen soft, some discomfort w deep palpation. Nondistended. Normoactive bowel sounds x4. MUSCULOSKELETAL: No obvious deformities. Extremities without edema. NEUROLOGICAL: Awake and alert. No obvious cranial nerve deficits. Motor grossly within normal limits. 5/5 muscle strength in bilateral upper and lower extremities. Normal speech. PSYCHIATRIC: Appropriate mood and affect; insight and judgment normal. A/P Problem List: (1) Microcytic hypochromic anemia ICD Code: D50.9 Status: Acute (2) Syncope and collapse ICD Code: R55 Status: Acute (3) Leukocytosis ICD Code: D72.829 Status: Acute (4) Hypokalemia ICD Code: E87.6 Status: Acute (5) Migraine headache ICD Code: G43.909 Status: Acute (6) Sinus tachycardia ICD Code: R00.0 Status: Acute Assessment and Plan Migraine headache s/p 10 mg Compazine IV 1/25 mg Benadryl IV 1 and Imitrex PRN. MRI brain images reviewed by me, unremarkable exam. MRI cervical spine reviewed by me, multilevel degenerative disc disease without canal stenosis. Neurology following , increase Topamax 50 mg PO Q8hr. Continue Imitrex sq and Dilaudid . Acetaminophen PRN for fever. Sinus tachycardia Status post adenosine 6 mg IV 1 ED. Heart initially 170 resolved with IV fluid bolus 1.25 L resolved TSH mildly elevated and free T4 normal. Currently on normal saline at 84 cc an hour, continue IVF. GI bleed Status post Protonix 80 mg IV 1 followed by 8 mg per hour drip stable at Hb 10.7 today status post EGD and colonoscopy which were negative. bleeding scan didn't show site of bleed. Small bowel follow through showed Mildly prolonged small bowel transit time otherwise unremarkable Status post 3 units packed red blood cells. 2 units of PRBC on hold. on her period which started yesterday: on ferrous sulfate 325mg po bid Colonoscopy today reveals internal and external hemorrhoids. GI recommends benefiber and hydrocortisone supp BID. If bleeding persists consult CRS Microcytic hypochromic anemia Continue to monitor hemoglobin. ferrous sulfate MSK: Encourage out of bed to chair and ambulation on a regular basis. Follow up patient mentioning right calf larger than the left and has been present for one year - Lower extremity ultrasound reviewed by me, no evidence of DVT. Hypokalemia S/p potassium replacement. resolved. Magnesium 2.3, on 07/22. GI Prophylaxis Protonix DVT Prophylaxis SCD/pharmacological prophylaxis contraindicated with rectum bleeding Discharge Planning f/u hb level, transfuse as needed. anticipate discharge tomorrow. Problem Qualifiers (1) Leukocytosis: Qualified Code: D72.829 - Leukocytosis, unspecified type (2) Migraine headache: Qualified Code: G43.909 - Migraine without status migrainosus, not intractable , unspecified migraine type Lucila Somers MD July 25, 2016 13:32
[2016-07-25] MEDS: PANTOPRAZOLE SOD 40 MG DELAYED RELEASE TAB PO SCH ×2 (13:49→22:05)
[2016-07-25] MEDS: FERROUS SULFATE 325 MG (65 MG ELEMENTAL IRON) TAB PO SCH ×2 (13:49→22:05)
[2016-07-25] MEDS: HYDROCORTISONE ACETATE 25 MG SUPP RECTAL SCH ×2 (14:01→22:06)
[2016-07-25 18:42] LABS: HEMATOCRIT 30.5 % (35.0-46.0); REVIEW FLAG FINAL
[2016-07-26] VITALS: BP 111/61; PULSE 88; RESP 18; TEMP 98.5; O2SAT 100
[2016-07-26 01:09] LABS: HEMATOCRIT 27.6 % (35.0-46.0); REVIEW FLAG FINAL
[2016-07-26] MEDS: NS + KCL 20 MEQ INJ 1,000 ML IV SCH (04:45)
[2016-07-26] MEDS: TOPIRAMATE 25 MG TAB PO SCH (06:11)
[2016-07-26] MEDS: SUMAtriptan INJ 6 MG/0.5 ML VIAL SQ PRN ×2 (06:12→10:36)
[2016-07-26] MEDS: PANTOPRAZOLE SOD 40 MG DELAYED RELEASE TAB PO SCH (07:51)
[2016-07-26] MEDS: FERROUS SULFATE 325 MG (65 MG ELEMENTAL IRON) TAB PO SCH (07:51)
[2016-07-26] MEDS: oxyCODONE/ACETAMINOPHEN 5 MG/325 MG TAB PO PRN (07:51)
[2016-07-26] MEDS: HYDROCORTISONE ACETATE 25 MG SUPP RECTAL SCH (07:52)
[2016-07-26] MEDS: SODIUM CHLORIDE 0.9% FLUSH 10 ML FLUSH IV FLUSH SCH (07:54)
[2016-07-26 08:00] VITALS: BP 124/62; PULSE 87; RESP 20; TEMP 98.5; O2SAT 100
[2016-07-26 08:33] VITALS: PULSE 95
[2016-07-26 08:48] LABS: HEMATOCRIT 29.3 % (35.0-46.0); REVIEW FLAG FINAL
--- NOTE | 2016-07-26 09:25 | HHI.PR ---
Subjective Remarks Follow-up GI bleed. The patient states that she had menstrual bleeding for about one day, but that has stopped. No further rectal bleeding, other than a small amount on the toilet paper. No nausea or vomiting. Feels ready to go home. Objective Vitals Vital Signs Date Time Temp Pulse Resp B/P Pulse Ox O2 Delivery O2 Flow Rate FiO2 07/26/16 04:00 Room Air 07/26/16 00:00 Room Air 07/26/16 00:00 98.5 88 18 111/61 100 07/25/16 21:04 84 07/25/16 20:00 98.5 91 20 114/71 100 07/25/16 20:00 Room Air 07/25/16 16:00 98.2 92 16 116/69 100 07/25/16 15:00 20 07/25/16 11:47 75 18 96/57 100 07/25/16 11:37 87 18 104/66 97 07/25/16 11:27 98.7 80 18 109/65 100 07/25/16 10:36 98.6 75 16 109/57 100 I/O 07/25/16 07/25/16 07/25/16 07/26/16 07/26/16 07/26/16 07:00 15:00 23:00 07:00 15:00 23:00 Intake Total 600 ml 399 ml 678 ml Balance 600 ml 399 ml 678 ml Intake Oral 0 ml 0 ml IV Total 399 ml 678 ml Other 600 ml # Voids 2 0 # Bowel Movements 0 0 Result Diagram: 07/26/16 0730 07/24/16 0804 Imaging Last Impressions Small Bowel X-Ray 07/23/16 0000 Signed Impressions: Service Date/Time: Sunday, July 24, 2016 10:11 - CONCLUSION: Mildly prolonged small bowel transit time. Otherwise unremarkable small bowel examination. Ashish Monreal MD GI Bleed Scan Nuclear Medicine 07/23/16 0000 Signed Impressions: Service Date/Time: Saturday, July 23, 2016 17:55 - CONCLUSION: Unable to localize the site of the patient's gastrointestinal bleeding at this time. Galina Bartlett MD Cervical Spine MRI 07/23/16 0000 Signed Impressions: Service Date/Time: Saturday, July 23, 2016 07:40 - CONCLUSION: 1. Multilevel degenerative disc disease without canal stenosis. Abilio James MD Lower Extremity Ultrasound 07/22/16 0000 Signed Impressions: Service Date/Time: Friday, July 22, 2016 10:50 - CONCLUSION: 1. No evidence of deep venous thrombosis. Navdeep Reyes MD Brain MRI 07/22/16 0000 Signed Impressions: Service Date/Time: Friday, July 22, 2016 15:40 - CONCLUSION: Unremarkable exam. Maco Hines MD Objective Remarks General: No acute distress. Heart: Regular rate and rhythm. No murmur. Lungs: Clear to auscultation bilaterally. No wheezes, rales, or rhonchi. Breathing is nonlabored. Abdomen: Soft, mild tenderness in the upper abdomen without rebound or guarding , nondistended. Extremities: No lower extremity edema. Psych: Alert and oriented. Procedures 07/20/16 EGD 07/21/16 colonoscopy 07/25/16 colonoscopy Urinary Catheter: No Vascular Central Line Catheter: No A/P Problem List: (1) Microcytic hypochromic anemia ICD Code: D50.9 Status: Acute (2) Syncope and collapse ICD Code: R55 Status: Acute (3) Leukocytosis ICD Code: D72.829 Status: Acute (4) Hypokalemia ICD Code: E87.6 Status: Acute (5) Migraine headache ICD Code: G43.909 Status: Acute (6) Sinus tachycardia ICD Code: R00.0 Status: Acute Assessment and Plan 1. Migraine headache: MRI of the brain is unremarkable. MRI of the cervical spine shows multilevel degenerative disc disease without canal stenosis. Appreciate neurology recommendations. Continue Topamax, Imitrex. 2. Sinus tachycardia: Improved. 3. GI bleed: Appreciate gastroenterology recommendations. Status post EGD. Status post colonoscopy 2, which revealed internal and external hemorrhoids. Hemoglobin stable. Patient received 3 units of PRBCs during this hospitalization. Continue iron sulfate. Patient is currently on her menstrual period, started 07/24/16. 4. Microcytic hypochromic anemia: Continue iron supplementation. 5. Hypokalemia: Improved. 6. GI prophylaxis: Protonix. 7. DVT prophylaxis: SCDs. Chemical prophylaxis contraindicated secondary to GI bleed. Discharge Planning Discharge home today in stable condition. Follow-up with gastroenterology. Case management to assist with follow-up, discharge medications. Problem Qualifiers (1) Leukocytosis: Qualified Code: D72.829 - Leukocytosis, unspecified type (2) Migraine headache: Qualified Code: G43.909 - Migraine without status migrainosus, not intractable , unspecified migraine type Kushal Sanchez MD July 26, 2016 09:25
[2016-07-26] MEDS ORDERED: HYDR39SU2 RECTAL (09:39)
[2016-07-26] MEDS ORDERED: FERR325T PO (09:39)
[2016-07-26] MEDS ORDERED: TOPA25TA8 PO (09:39)
--- NOTE | 2016-07-26 09:39 | HHI.DCPOC ---
Discharge Care Plan Diagnosis: (1) Hypokalemia (2) Microcytic hypochromic anemia (3) Migraine headache (4) Leukocytosis (5) Sinus tachycardia (6) GI bleed Goals to Promote Your Health * To prevent worsening of your condition and complications * To maintain your health at the optimal level Directions to Meet Your Goals Take your medications as prescribed Follow your dietary instruction Follow activity as directed Keep your appointments as scheduled Take your immunizations and boosters as scheduled If your symptoms worsen call your PCP, if no PCP go to Urgent Care Center or Emergency Room Smoking is Dangerous to Your Health. Avoid second hand smoke Call the 24-hour hour crisis hotline for domestic abuse at Kushal Sanchez MD July 26, 2016 09:39
--- NOTE | 2016-07-26 09:40 | HHI.DS ---
Discharge Summary Admission Date Jul 20, 2016 at 10:55 Discharge Date: July 26, 2016 Admitting Diagnosis gi bleed (1) Microcytic hypochromic anemia ICD Code: D50.9 Diagnosis: Principal (2) Syncope and collapse ICD Code: R55 Diagnosis: Principal (3) Leukocytosis ICD Code: D72.829 Diagnosis: Principal (4) Hypokalemia ICD Code: E87.6 Diagnosis: Principal (5) Migraine headache ICD Code: G43.909 Diagnosis: Principal (6) Sinus tachycardia ICD Code: R00.0 Diagnosis: Principal Procedures 07/20/16 EGD 07/21/16 colonoscopy 07/25/16 colonoscopy Brief History - From Admission 46-year-old female. Admission 07/20/2069. Past medical his migraine headache - she takes 6-8 Excedrin migraines daily presented to [place] [facility] with a 4 history of syncope at home. She noted that she her stools have been dark in nature. No murray blood noted. Prior history of "ulcer" 20 years ago diagnosed by barium examination. She is noted be tachycardic with rate 170s need EP was given 6 adenosine without result. Received 2 L normal saline. Hemoglobin 5.4. Type and cross for 2 units to be transfused PRBCs. Protonix drip 80 mg IV times once followed by 8 mg an hour. Ulcerative potassium 3.0. Replace. Also complaining of migraine headache without aura. She states that codeine and Lortab make her itch. Compazine and Benadryl ordered 1. CBC/BMP: 07/26/16 0730 07/24/16 0804 Significant Findings Laboratory Tests Test 07/23/16 07/24/16 07/24/16 07/24/16 15:56 08:04 17:51 23:30 Hemoglobin 10.0 GM/DL 10.2 GM/DL 10.6 GM/DL (11.6-15.3) (11.6-15.3) (11.6-15.3) Hematocrit 30.7 % 32.1 % 32.5 % (35.0-46.0) (35.0-46.0) (35.0-46.0) Estimat Glomerular Filtration 85 ML/MIN (>89) Rate Test 07/25/16 07/25/16 07/25/16 07/26/16 05:40 12:15 18:09 00:38 Red Blood Count 3.75 MIL/MM3 (4.00-5.30) Hemoglobin 9.7 GM/DL 10.7 GM/DL 9.7 GM/DL 9.3 GM/DL (11.6-15.3) (11.6-15.3) (11.6-15.3) (11.6-15.3) Hematocrit 29.6 % 32.8 % 30.5 % 27.6 % (35.0-46.0) (35.0-46.0) (35.0-46.0) (35.0-46.0) Mean Corpuscular Volume 79.0 FL (80.0-100.0) Mean Corpuscular Hemoglobin 25.9 PG (27.0-34.0) Red Cell Distribution Width 17.3 % (11.6-17.2) Test 07/26/16 07:30 Hemoglobin 9.6 GM/DL (11.6-15.3) Hematocrit 29.3 % (35.0-46.0) Imaging Last Impressions Small Bowel X-Ray 07/23/16 0000 Signed Impressions: Service Date/Time: Sunday, July 24, 2016 10:11 - CONCLUSION: Mildly prolonged small bowel transit time. Otherwise unremarkable small bowel examination. Ashish Monreal MD GI Bleed Scan Nuclear Medicine 07/23/16 0000 Signed Impressions: Service Date/Time: Saturday, July 23, 2016 17:55 - CONCLUSION: Unable to localize the site of the patient's gastrointestinal bleeding at this time. Galina Bartlett MD Cervical Spine MRI 07/23/16 0000 Signed Impressions: Service Date/Time: Saturday, July 23, 2016 07:40 - CONCLUSION: 1. Multilevel degenerative disc disease without canal stenosis. Abilio James MD Lower Extremity Ultrasound 07/22/16 0000 Signed Impressions: Service Date/Time: Friday, July 22, 2016 10:50 - CONCLUSION: 1. No evidence of deep venous thrombosis. Navdeep Reyes MD Brain MRI 07/22/16 0000 Signed Impressions: Service Date/Time: Friday, July 22, 2016 15:40 - CONCLUSION: Unremarkable exam. Maco Hines MD PE at Discharge General: No acute distress. Heart: Regular rate and rhythm. No murmur. Lungs: Clear to auscultation bilaterally. No wheezes, rales, or rhonchi. Breathing is nonlabored. Abdomen: Soft, mild tenderness in the upper abdomen without rebound or guarding , nondistended. Extremities: No lower extremity edema. Psych: Alert and oriented. Transfer Summary Remarks/Hospital Course 46-year-old female. Admission 07/20/2069. Past medical his migraine headache - she takes 6-8 Excedrin migraines daily presented to [place] ED with a 4 history of syncope at home. She noted that she her stools have been dark in nature. No murray blood noted. Prior history of "ulcer" 20 years ago diagnosed by barium examination. She is noted be tachycardic with rate 170s need EP was given 6 adenosine without result. Received 2 L normal saline. Hemoglobin 5.4. Type and cross for 2 units to be transfused PRBCs. Protonix drip 80 mg IV times once followed by 8 mg an hour. Currently potassium 3.0. Replace. Also complaining of migraine headache without aura. She states that codeine and Lortab make her itch. Compazine and Benadryl ordered 1. Subjective 07/21: Afebrile. Complaining of headache currently. Received Imitrex. Received Compazine, Benadryl and Dilaudid 1 now. No vision changes. For sigmoidoscopy today. EGD negative yesterday. Hemoglobin currently 8.4 status post 3 units PRBCs. Hospital Course The patient was admitted to the critical care service for management of migraine headache, sinus tachycardia, GI bleed. Gastroenterology was consulted. Patient received 3 units of PRBCs during the hospitalization. Her hemoglobin improved and remained stable. She had EGD as well as colonoscopy 2. She was found to have internal and external hemorrhoids. She was started on hydrocortisone suppositories. She was cleared for discharge by gastroenterology. Neurology evaluated the patient during the hospitalization for migraine headaches. She was started on Topamax and Imitrex. Pt Condition on Discharge: Stable Discharge Disposition: Discharge Home Discharge Time: > 30 minutes Discharge Instructions DIET: Follow Instructions for: As Tolerated, No Restrictions Activities you can perform: Regular-No Restrictions Follow up Referrals: Gastroenterology - 1 Week with Roney Marlow MD Neurology - 3 Weeks with Jorden Alberto PhD MD PCP Follow-up New Medications: Hydrocortisone Acetate Supp (Hydrocortisone Acetate Supp) 25 Mg Supp 25 MG RECTAL BID Hemorrhoids #60 Ref 0 SUPP Ferrous Sulfate (Ferrous Sulfate) 325 Mg Tab 325 MG PO BID Anemia #60 Ref 0 TAB Topiramate (Topamax) 25 Mg Tab 50 MG PO Q8HR Headaches #90 Ref 0 TAB Kushal Sanchez MD July 26, 2016 09:40
== END 2016-07-26 11:54 | disposition home or self-care (01) | DRG 379 ==
LOC: NEPC 09:11 → NEDA 10:55 → NEDH 14:48 → N03B 16:08 → HIMN 18:50 → N04A 07-21 19:46
PROVIDERS: ADMIT Internal Medicine Critical Care Medicine; ATTEND Family Medicine
PROC: 0DJ08ZZ Inspection of Upper Intestinal Tract, Via Natural or Artificial Opening Endoscopic (ICD-10-PCS; 2016-07-20)
PROC: 30233N1 Transfusion of Nonautologous Red Blood Cells into Peripheral Vein, Percutaneous Approach (ICD-10-PCS; 2016-07-20)
PROC: 0DJD8ZZ Inspection of Lower Intestinal Tract, Via Natural or Artificial Opening Endoscopic (ICD-10-PCS; 2016-07-21)
PROC: 0D5P8ZZ Destruction of Rectum, Via Natural or Artificial Opening Endoscopic (ICD-10-PCS; principal; 2016-07-25 10:37)
DX: K92.1 Melena (principal); R55 Syncope and collapse; D50.0 Iron deficiency anemia secondary to blood loss (chronic); K64.8 Other hemorrhoids; K92.0 Hematemesis; E86.1 Hypovolemia; K64.4 Residual hemorrhoidal skin tags; G43.009 Migraine without aura, not intractable, without status migrainosus; E87.6 Hypokalemia; R00.0 Tachycardia, unspecified; D72.829 Elevated white blood cell count, unspecified; M47.812 Spondylosis without myelopathy or radiculopathy, cervical region; M50.30 Other cervical disc degeneration, unspecified cervical region; Z88.1 Allergy status to other antibiotic agents; Z88.5 Allergy status to narcotic agent
CPT/HCPCS: 36430; 70553; 72141; 74250; 76937; 78278; 80048; 80053; 83605; 83735; 84100; 84155; 84439; 84443; 84481; 84702; 85014; 85018; 85025; 85027; 85610; 85730; 86850; 86900; 86901; 86920; 87641; 93005; 93971; 96361; 96365; A9560; A9579; C9113; J0131; J0153; J0780; J1170; J1200; J2405; J3010; J3030; J3480; J7030; J7040; J7050; P9016